=== PATIENT | female | born 1950 | race Caucasian/White ===

== ENCOUNTER 2019-11-04 18:26 | Emergency (ER) | payer MEDICARE, SELFPAY ==
[2019-11-04] VITALS (14 sets, daily range): BP systolic 93–118; BP diastolic 46–57; PULSE 54–70; RESP 16–37; TEMP 36.2; O2SAT 95–100
--- NOTE | 2019-11-04 18:30 | ED_ITS ---
HPI - Neuro Symptoms/Deficit General Chief Complaint: Weakness Stated Complaint: thinks TIA Time Seen by Provider: 11/04/19 18:30 Source: patient Mode of arrival: Wheelchair Limitations: no limitations History of Present Illness HPI Narrative: 69-year-old female nonsmoker with history of diabetes and hypertension presents with a chief complaint of generalized weakness gradually worsening over the course of the day. She denies any fever or chills. She has had no runny nose, sore throat or cough. She feels fatigued and unsteady. She denies any blurred vision or trouble with speech. She denies any focal neur ologic findings such as numbness, tingling or weakness. She's had no chest pain or SOB. She's had no N/V/D. She denies urinary frequency and urgency. She has chronic pain and her medical problems are managed at a pain clinic in [place]. She is visiting locally and complains of some vague low back pain in the absence of injury. She denies loss of control of bowel or bladder. She denies foot drop. Onset (ago): hour(s) History of same: No Severity: moderate Quality: weak Relieving factors: none Exacerbating factors: none Context: gradual onset On Anticoagulants: No Associated symptoms: denies other symptoms Treatments Prior to Arrival: none Related Data Allergies Allergy/AdvReac Type Severity Reaction Status Date / Time NSAIDS (Non-Steroidal AdvReac Unknown Verified 11/04/19 18:32 Anti-Inflamma Review of Systems Review of Systems ROS Unobtainable: All systems reviewed & are unremarkable except as noted in HPI and below Constitutional Constitutional: Denies chills, Denies fatigue, Denies fever(s), Denies frequent falls, Denies lethargy and Reports weakness Eyes Eyes: Denies change in vision, Denies eye discharge, Denies irritation and Denies loss of vision ENT Ears, Nose, Mouth, and Throat: Denies change in voice, Denies dizziness, Denies neck pain, Denies sore throat and Denies throat swelling Cardiovascular Cardiovascular: Denies chest pain, Denies irregular heart rhythm, Denies lightheadedness, Denies palpitations, Denies dyspnea, Denies dyspnea on exertion and Denies orthopnea Respiratory Respiratory: Denies cough, Denies dyspnea, Denies dyspnea on exertion and Denies wheezing Gastrointestinal Gastrointestinal: Denies abdominal pain, Denies change in bowel habits, Denies diarrhea, Denies nausea and Denies vomiting Musculoskeletal Musculoskeletal: Reports back pain, Denies neck pain and Denies numbness Integumentary/Breasts Skin/Breast: Denies pruritus, Denies erythema, Denies rash and Denies wounds Neurologic Neurologic: Denies behavioral changes, Denies confusion, Denies dizziness, Denies frequent falls, Denies loss of vision, Denies numbness and Reports weakness Psychiatric Psychiatric: Denies anxiety, Denies behavioral changes, Denies confusion, Denies depression, Denies homicidal ideation and Denies suicidal ideation Endocrine Endocrine: Denies fatigue, Denies flushing and Denies palpitations Hematologic/Lymphatic Hematologic/Lymphatic: Denies easy bruising Allergic/Immunologic Allergic/Immunologic: Denies urticaria, Denies throat swelling and Denies wheezing Patient History Social History Smoking Status: Never smoker Smoking Status: Never smoker alcohol intake frequency: 0-2 drinks per day Substance Use Type: does not use Exam Narrative Exam Narrative: GENERAL: [69] year old patient appears stated age. Well-nourish ed, well-developed patient, in mild distress. HEAD: Atraumatic. Normocephalic. EYES: Pupils equal round and reactive. Extraocular motions intact. No scleral icterus. No injection or drainage. ENT: Nose without bleeding, purulent drainage. Throat without erythema, tonsillar hypertrophy or exudate. Airway patent. NECK: Trachea midline. Non tender CARDIOVASCULAR: Regular rate and rhythm without murmurs, gallops, or rubs. RESPIRATORY: Clear to auscultation. Breath sounds equal bilaterally. No wheezes, rales, or rhonchi. GASTROINTESTINAL: Abdomen soft, non-tender, nondistended. EXTREMITIES: No edema or joint tenderness. BACK: fourdrinier machine tender but free of any obvious external abnormalities. Patient exam notes decreased range of motion and muscle spasm, but no CVA tenderness, or vertebral point tenderness. There are no symptoms of cauda equina such as saddle anesthesia, and decreased reflexes, decreased sensation or strength. NEURO: AOx3. SKIN: No rash or erythema of visible areas Initial Vital Signs Initial Vital Signs: Vital Signs Temperature 97.1 F L 11/04/19 18:29 Pulse Rate 57 L 11/04/19 18:29 Respiratory Rate 18 11/04/19 18:29 Blood Pressure 98/57 L 11/04/19 18:29 Pulse Oximetry 97 11/04/19 18:29 Scores NIH Stroke Scale Level of Conciousness: Alert, keenly responsive Ask month/age: Answers both questions correctly. Open/close eyes, close hand: Performs both tasks correctly Best gaze horizontal: Normal Visual faust: No visual loss Facial palsy: Normal symetrical movement Left arm drift: No drift for full 10 sec Right arm drift: No drift for full 10 sec Left leg drift: No drift for full 10 sec Right leg drift: No drift for full 10 sec Limb ataxia: Absent Sensory on face/arms/legs: Normal, no sensory loss Best language: No aphasia, normal Dysarthria: Normal Extinction or inattention: No abnormality Total NIH Stroke scale score: 0 Course Course Course Narrative: as the course wears on she is complaining more and more of dyspnea. She has no abnormal vitals and is able to ambulate to and from the bathroom without and obvious difficulty. She has spo2 in the mid to upper 90s. She is evaluated for stroke, but thought unlikely given her symptoms and exam. CA considered but thought unlikely given symptoms, lack of exertional change, EKG change and normal troponin. PE considered given recent travel, but no findings on CTA. Electrolyte abnormalities ruled out by lab work. Pneumonia, CHF, and others also considered. Return precautions given, questions answered to her apparent satisfaction. Orders Ordered: ED Orders 11/04/19 18:41 CT head/brain wo con Stat XR chest 1V Stat EKG-12 Lead Stat 11/04/19 18:53 C-Reactive Protein Quant Stat Complete Blood Count AUTO DIFF Stat Comprehensive Metabolic Panel Stat NT-proBNP (BNP-Adult 18+) Stat Procalcitonin Stat Troponin & CK Cardiac Panel Stat 11/04/19 18:59 D Dimer Stat 11/04/19 20:05 CT angio chest PE protocol Stat 11/04/19 20:37 XR lumbar spine 2-3V Stat Discontinued Medications Acetaminophen (Tylenol) 650 mg PO NOW ONE Stop: 11/04/19 23:08 Last Admin: 11/04/19 23:12 Dose: 650 mg Documented by: BILLIE Sodium Chloride (Normal Saline 0.9%) 1,000 mls @ 1,000 mls/hr IV BOLUS ONE Stop: 11/04/19 19:38 Last Infusion: 11/04/19 21:00 Dose: 0 mls/hr Documented by: Admin: 11/04/19 19:23 Dose: 1,000 mls/hr Documented by: KAVYA Sodium Chloride (Normal Saline 0.9%) 1,000 mls @ 1,000 mls/hr IV BOLUS ONE Stop: 11/04/19 20:51 Last Admin: 11/04/19 23:17 Dose: Not Given Documented by: BLILIE Ketorolac Tromethamine (Toradol) 15 mg IV NOW ONE Stop: 11/04/19 21:55 Last Admin: 11/04/19 22:35 Dose: 15 mg Documented by: BILLIE Lidocaine (Lidoderm) 1 each TOP NOW ONE Stop: 11/04/19 20:34 Last Admin: 11/04/19 20:41 Dose: 1 each Documented by: BILLIE Pantoprazole Sodium (Protonix) 40 mg IV NOW ONE Stop: 11/04/19 21:55 Last Admin: 11/04/19 22:35 Dose: 40 mg Documented by: BILLIE Vital Signs Vital signs: Vital Signs - 8 hr 11/04/19 18:29 11/04/19 19:30 11/04/19 19:46 Temperature 97.1 F L Pulse Rate 57 L 54 L 55 L Respiratory Rate 18 18 18 Blood Pressure 98/57 L 93/51 L Pulse Oximetry 97 99 96 11/04/19 20:00 11/04/19 20:30 11/04/19 21:07 Temperature Pulse Rate 55 L 70 62 Respiratory Rate 19 37 H 23 Blood Pressure 111/56 L Pulse Oximetry 100 99 99 11/04/19 21:08 11/04/19 21:30 11/04/19 21:31 Temperature Pulse Rate 60 58 L 58 L Respiratory Rate 23 19 17 Blood Pressure 111/56 L 118/51 L Pulse Oximetry 99 95 99 11/04/19 22:00 11/04/19 22:03 11/04/19 22:04 Temperature Pulse Rate 57 L 60 58 L Respiratory Rate 18 16 21 Blood Pressure 105/55 L 105/55 L Pulse Oximetry 98 11/04/19 22:30 11/04/19 23:00 Temperature Pulse Rate 65 64 Respiratory Rate 23 20 Blood Pressure 112/56 L 94/46 L Pulse Oximetry 100 MDM - Neuro Symptoms/Deficit Lab Data Result diagrams: 11/04/19 18:53 11/04/19 18:53 Labs: Lab Results 11/04/19 11/04/19 11/04/19 Range/Units 18:53 18:53 18:53 WBC 9.2 (4.5-11.0) X10^3/uL RBC 4.27 (4.0-5.2) X10^6/uL Hgb 12.3 (12.0-16.0) g/dL Hct 36.4 (36-46) % MCV 85.4 (80-100) fL MCH 28.9 (26-34) PG MCHC 33.8 (30-36) % RDW 13.5 (11.6-14.8) % Plt Count 313 (150-400) X10^3/uL Neut % (Auto) 60.3 (50-75) % Lymph % (Auto) 29.7 (25-40) % [place] % (Auto) 8.8 (3-14) % Eos % (Auto) 0.6 L (2-4) % Baso % (Auto) 0.6 (0-2) % Neut # (Auto) 5500 (7169-9903) /uL Lymph # (Auto) 2700 (3345-0032) /uL [place] # (Auto) 800 (0-900) /uL Eos # (Auto) 100 (0-450) /uL Baso # (Auto) 100 (0-100) /uL D-Dimer (<230) ng/mL Sodium 132 L (137-145) mmol/L Potassium 4.2 (3.4-5.1) mmol/L Chloride 96 L (98-107) mmol/L Carbon Dioxide 30 (22-32) mmol/L BUN 13 (7-17) mg/dL Creatinine 0.57 (0.52-1.04) mg/dL Estimated GFR > 60.0 (>60) mL/min BUN/Creatinine Ratio 22.8 H (6-22) Glucose 201 H (80-110) mg/dL Calcium 10.2 (8.4-10.2) mg/dL Total Bilirubin 0.5 (0.2-1.3) mg/dL AST 24 (14-36) IU/L ALT 19 (<35) IU/L Alkaline Phosphatase 103 (38-126) U/L Total Creatine Kinase (30-135) U/L CK-MB (CK-2) (<2.37) ng/mL CK-MB (CK-2) Rel Index (1.5-5.0) % Troponin I (0.01-0.034) ng/mL C-Reactive Protein 2.7 H (<1.0) mg/dL NT-Pro-B Natriuret Pep 119 (<125) pg/mL Total Protein 6.8 (6.3-8.2) g/dL Albumin 4.0 (3.5-5.0) g/dL Globulin 2.8 (1.7-4.1) g/dL Albumin/Globulin Ratio 1.4 (1.0-2.8) Procalcitonin < 0.05 (<0.5) ng/mL 11/04/19 11/04/19 Range/Units 18:53 18:59 WBC (4.5-11.0) X10^3/uL RBC (4.0-5.2) X10^6/uL Hgb (12.0-16.0) g/dL Hct (36-46) % MCV (80-100) fL MCH (26-34) PG MCHC (30-36) % RDW (11.6-14.8) % Plt Count (150-400) X10^3/uL Neut % (Auto) (50-75) % Lymph % (Auto) (25-40) % [place] % (Auto) (3-14) % Eos % (Auto) (2-4) % Baso % (Auto) (0-2) % Neut # (Auto) (3788-4164) /uL Lymph # (Auto) (7685-2224) /uL [place] # (Auto) (0-900) /uL Eos # (Auto) (0-450) /uL Baso # (Auto) (0-100) /uL D-Dimer 203 (<230) ng/mL Sodium (137-145) mmol/L Potassium (3.4-5.1) mmol/L Chloride (98-107) mmol/L Carbon Dioxide (22-32) mmol/L BUN (7-17) mg/dL Creatinine (0.52-1.04) mg/dL Estimated GFR (>60) mL/min BUN/Creatinine Ratio (6-22) Glucose (80-110) mg/dL Calcium (8.4-10.2) mg/dL Total Bilirubin (0.2-1.3) mg/dL AST (14-36) IU/L ALT (<35) IU/L Alkaline Phosphatase (38-126) U/L Total Creatine Kinase 109 (30-135) U/L CK-MB (CK-2) 0.56 (<2.37) ng/mL CK-MB (CK-2) Rel Index 0.5 L (1.5-5.0) % Troponin I < 0.012 (0.01-0.034) ng/mL C-Reactive Protein (<1.0) mg/dL NT-Pro-B Natriuret Pep (<125) pg/mL Total Protein (6.3-8.2) g/dL Albumin (3.5-5.0) g/dL Globulin (1.7-4.1) g/dL Albumin/Globulin Ratio (1.0-2.8) Procalcitonin (<0.5) ng/mL Imaging Data CT scan - head: Radiologist's Impression: Michelle Cerda 69 F 1950 [place] [address] CT Scan Report Signed Patient: Michelle Cerda LMR#: [id number] : [id number]:[id number] Age/Sex: 69 / FDate of Service: 11/04/19 Loc: ED Accession Number: [id number] Procedure: CT head/brain wo con Ordering Provider: Sven Ying D.O. PROCEDURE: CT HEAD/BRAIN WO CON INDICATIONS: vision change, weakness TECHNIQUE: Noncontrast 4.5 mm thick angled axial sections acquired from the foramen magnum to the vertex, with coronal and sagittal reformats. For radiation dose reduction, the following was used: automated exposure control, adjustment of mA and/or kV according to patient size. COMPARISON: None. FINDINGS: Image quality: Excellent. CSF spaces: Basal cisterns are patent. No extra-axial fluid collections. The ventricles are symmetric in size and shape. Brain: No intracranial bleeds or masses. There is cerebral volume loss for age, with resultant ventricular and sulcal prominence. There are periventricular and deep white matter chronic small vessel ischemic changes. There is intracranial internal carotid artery atherosclerosis. Skull and face: Calvarium and visualized facial bones appear intact, without suspicious lesions. Sinuses: Visualized sinuses and mastoids are clear. IMPRESSION: No acute intracranial process. Dictated by: Mike Payton M.D. on 11/04/2019 at 19:12 Approved by: Mike Payton M.D. on 11/04/2019 at 19:13 CT scan - chest: Radiologist's Impression: [address] [address] XRay Report Signed Patient: Michelle Cerda LMR#: [id number] : [id number]:[id number] Age/Sex: 69 / FDate of Service: 11/04/19 Loc: ED Accession Number: [id number] Procedure: XR chest 1V Ordering Provider: Sven Ying D.O. PROCEDURE: XR CHEST 1V INDICATIONS: weakness TECHNIQUE: One view of the chest was acquired. COMPARISON: None. FINDINGS: Surgical changes and devices: None. Lungs and pleura: Lungs are clear. No pleural effusions or pneumothorax. Mediastinum: Mediastinal contours appear normal. Heart size is normal. Bones and chest wall: No suspicious bony lesions. Overlying soft tissues appear unremarkable. IMPRESSION: No acute disease. Dictated by: Mike Payton M.D. on 11/04/2019 at 19:25 Approved by: Mike Payton M.D. on 11/04/2019 at 19:25 Discharge Plan Departure Patient Disposition: Home Clinical Impression: Acute dyspnea Discharge Date/Time: 11/04/19 23:38 Instructions: DI for Shortness of Breath Activity Restrictions/Additional Instructions: *You have been diagnosed with [dyspnea and weakness, labs and imaging were very reassuring. No evidence of pulmonary embolism, heart attack, pneumonia, anemia, electrolyte problem or other. ] *What to do: *Take medications as directed *Follow up with your primary care provider in 2-3 days, call for an aaron ointment. Let them know you were seen in the Emergency Department and that we ask that you be seen in follow up *Return to ER if you should have any new, worsening or concerning symptoms, such as [ ] Referrals: [facility] [Outside]
--- NOTE | 2019-11-04 18:41 | DI.CT.S_ITS ---
PROCEDURE: CT HEAD/BRAIN WO CON INDICATIONS: vision change, weakness TECHNIQUE: Noncontrast 4.5 mm thick angled axial sections acquired from the foramen magnum to the vertex, with coronal and sagittal reformats. For radiation dose reduction, the following was used: automated exposure control, adjustment of mA and/or kV according to patient size. COMPARISON: None. FINDINGS: Image quality: Excellent. CSF spaces: Basal cisterns are patent. No extra-axial fluid collections. The ventricles are symmetric in size and shape. Brain: No intracranial bleeds or masses. There is cerebral volume loss for age, with resultant ventricular and sulcal prominence. There are periventricular and deep white matter chronic small vessel ischemic changes. There is intracranial internal carotid artery atherosclerosis. Skull and face: Calvarium and visualized facial bones appear intact, without suspicious lesions. Sinuses: Visualized sinuses and mastoids are clear. IMPRESSION: No acute intracranial process. Dictated by: Mike Payton M.D. on 11/04/2019 at 19:12 Approved by: Mike Payton M.D. on 11/04/2019 at 19:13
--- NOTE | 2019-11-04 18:41 | DI.RAD.S_ITS ---
PROCEDURE: XR CHEST 1V INDICATIONS: weakness TECHNIQUE: One view of the chest was acquired. COMPARISON: None. FINDINGS: Surgical changes and devices: None. Lungs and pleura: Lungs are clear. No pleural effusions or pneumothorax. Mediastinum: Mediastinal contours appear normal. Heart size is normal. Bones and chest wall: No suspicious bony lesions. Overlying soft tissues appear unremarkable. IMPRESSION: No acute disease. Dictated by: Mike Payton M.D. on 11/04/2019 at 19:25 Approved by: Mike Payton M.D. on 11/04/2019 at 19:25
[2019-11-04 19:00] LABS: Add Manual Diff / Slide Review NO; Basophils Absolute Auto 100 /uL (0-100); Basophils Percent Auto 0.6 % (0-2); Eosinophils Absolute Auto 100 /uL (0-450); Eosinophils Percent Auto 0.6 % (2-4); Hematocrit 36.4 % (36-46); Hemoglobin 12.3 g/dL (12.0-16.0); Lymphocytes Absolute Auto 2700 /uL (1100-4500); Lymphocytes Percent Auto 29.7 % (25-40); Mean Corpuscular HGB Conc 33.8 % (30-36); Mean Corpuscular Hemoglobin 28.9 PG (26-34); Mean Corpuscular Volume 85.4 fL (80-100); Monocytes Absolute Auto 800 /uL (0-900); Monocytes Percent Auto 8.8 % (3-14); Neutrophils Absolute Auto 5500 /uL (1500-7000); Neutrophils Percent Auto 60.3 % (50-75); Platelet Count 313 X10^3/uL (150-400); Red Blood Cell Count 4.27 X10^6/uL (4.0-5.2); Red Cell Distribution Width 13.5 % (11.6-14.8); White Blood Cell Count 9.2 X10^3/uL (4.5-11.0)
[2019-11-04 19:09] LABS: Creatine Kinase 109 U/L (30-135)
[2019-11-04 19:13] LABS: Alanine Aminotransferase 19 IU/L (<35); Albumin Globulin Ratio 1.4 (1.0-2.8); Alkaline Phosphatase 103 U/L (38-126); Aspartate Aminotransferase 24 IU/L (14-36); BUN Creatinine Ratio 22.8 (6-22); Bilirubin Total 0.5 mg/dL (0.2-1.3); Blood Urea Nitrogen 13 mg/dL (7-17); C-Reactive Protein Quant 2.7 mg/dL (<1.0); Calcium 10.2 mg/dL (8.4-10.2); Carbon Dioxide 30 mmol/L (22-32); Chloride 96 mmol/L (98-107); Estimated Glomerular Filt Rate > 60.0 mL/min (>60); Globulin 2.8 g/dL (1.7-4.1); Glucose 201 mg/dL (80-110); HEMOLYSIS < 15 (0-50); Potassium 4.2 mmol/L (3.4-5.1); Sodium 132 mmol/L (137-145); Total Protein 6.8 g/dL (6.3-8.2)
[2019-11-04 19:20] LABS: NT-proBNP (BNP-Adult 18+) 119 pg/mL (<125)
[2019-11-04 19:22] LABS: Troponin I < 0.012 ng/mL (0.01-0.034)
[2019-11-04] MEDS: SODIUM CHLORIDE 0.9% 1,000 ML 1000 ML IV (19:23)
--- NOTE | 2019-11-04 19:24 | PC.NURSE ---
pt has +2-3 lower extremity pitting edema left greater than right. pt states that it has been that way for quite some time
[2019-11-04 19:25] LABS: CKMB % Relative Index 0.5 % (1.5-5.0); Creatine Kinase MB 0.56 ng/mL (<2.37); Procalcitonin < 0.05 ng/mL (<0.5)
--- NOTE | 2019-11-04 20:05 | DI.CT.S_ITS ---
PROCEDURE: CT ANGIO CHEST PE PROTOCOL INDICATIONS: SOB, travel TECHNIQUE: After the administration of intravenous contrast, 2 mm thick sections acquired from the pulmonary apices to the posterior costophrenic angles. 3-dimensional maximum intensity projection (MIP) coronal and sagittal reformats were then acquired through the thorax. For radiation dose reduction, the following was used: automated exposure control, adjustment of mA and/or kV according to patient size. COMPARISON: None. FINDINGS: Image quality: Excellent. Pulmonary arteries: Pulmonary arteries are normal in size, and demonstrate no intraluminal filling defects to suggest central pulmonary embolism. Lungs and pleura: Lungs are clear. No pleural effusions or pneumothorax. Central and peripheral airways are patent. 3 mm calcified granuloma seen in the lingula. Mediastinum: Heart size is normal, without pericardial effusion. No mediastinal or hilar adenopathy. Thoracic aorta is normal in caliber and enhancement. Small hiatal hernia. No suspicious bony lesions. Ribs and thoracic spine appear intact throughout. Thyroid gland negative . No axillary or supraclavicular adenopathy. Abdomen: Visualized upper abdominal solid organs appear normal in the early arterial phase of enhancement. IMPRESSION: No evidence of pulmonary embolism. No aortic dissection identified. No acute consolidation. Dictated by: Mike Payton M.D. on 11/04/2019 at 21:02 Approved by: Mike Payton M.D. on 11/04/2019 at 21:06
[2019-11-04 20:21] LABS: D Dimer 203 ng/mL (<230)
--- NOTE | 2019-11-04 20:37 | DI.RAD.S_ITS ---
PROCEDURE: XR LUMBAR SPINE 2-3V INDICATIONS: pain TECHNIQUE: 2 views of the lumbar spine were acquired. COMPARISON: None. FINDINGS: Bones: No fracture or focal osseous destruction. Diffuse spondylosis and facet arthropathy grade 1 anterolisthesis of L4 on L5. Severe L5-S1 disc space narrowing. Mild levocurvature. Soft tissues: Overlying bowel gas pattern is normal. No suspicious soft tissue calcifications. IMPRESSION: Multilevel spondylosis most pronounced at L5-S1. Grade 1 anterolisthesis of L4 on L5. No fracture Dictated by: Mike Payton M.D. on 11/04/2019 at 21:21 Approved by: Mike Payton M.D. on 11/04/2019 at 21:22
[2019-11-04] MEDS: LIDOCAINE PATCH 1 EACH ADH..PATCH TOP (20:41)
[2019-11-04] MEDS: KETOROLAC 60 MG/2 ML VIAL 15 MG IV (22:35)
[2019-11-04] MEDS: PANTOPRAZOLE 40 MG VIAL IV (22:35)
[2019-11-04] MEDS: ACETAMINOPHEN 325 MG TABLET 650 MG PO (23:12)
--- NOTE | 2019-11-04 23:15 | PC.NURSE ---
Pt states she's been here for 4 hours and wants to go home. Now ambulated to bathroom with daughter.
--- NOTE | 2019-11-04 23:15 | PC.NURSE ---
Pt declined orthostatic vital signs
== END 2019-11-04 23:38 | disposition home or self-care (01) ==
PROVIDERS: Emergency Provider Emergency Medicine
DX: R06.00 Dyspnea, unspecified (principal); R53.1 Weakness; M54.5 Low back pain
CPT/HCPCS: 36415; 70450; 71045; 71275; 72100; 80053; 82550; 82553; 83880; 84145; 84484; 85025; 85379; 86140; 93005; 96361; 96374; 96375; 99284; 99285; C9113; J1885; Q9967

== ENCOUNTER 2022-08-02 20:54 | Emergency (ER) | payer MEDICARE, SELFPAY ==
[2022-08-02 20:59] VITALS: PULSE 76; O2SAT 95
[2022-08-02 21:00] VITALS: BP 176/69; PULSE 75; RESP 16; O2SAT 97
[2022-08-02 21:02] VITALS: BP 176/69; PULSE 74; RESP 16; TEMP 36.6; O2SAT 97; BMI 46.5
--- NOTE | 2022-08-02 21:18 | ED.GENADULT ---
HPI - General Adult General Chief complaint: Toxicology Problem Stated complaint: OD Time Seen by Provider: 08/02/22 21:16 Source: patient and EMS Mode of arrival: EMS History of Present Illness HPI narrative: 71-year-old woman with a history of type 2 diabetes, hyperlipidemia, asthma, fibromyalgia, migraines, morbid are obesity with limited mobility post left hip replacement currently dealing with the of a 22-year-old granddaughter approximately 2 weeks ago presents after accidental narcotic overdose. She has 20 mg oxycodone available at home for acute pain relief. She took 1 of her pills today and shortly thereafter took a 2nd because she did not remember she took the 1st. Her daughter administered 2 doses of Narcan and she was transported to the emergency department. She complains of increasing pain but is awake and alert. Daughter is concerned that the daughter, son-in-law and mother are all living in a small mobile home and the daughter is requesting that mom be admitted overnight because it is difficult to have her at home. Patient reports no change to her baseline chronic pain and mobility issues. Related Data Allergies Allergy/AdvReac Type Severity Reaction Status Date / Time clindamycin Allergy Unknown Verified 08/02/22 21:08 metoprolol AdvReac Unknown Verified 08/02/22 21:08 NSAIDS (Non-Steroidal AdvReac Unknown Verified 08/02/22 21:08 Anti-Inflamma Review of Systems Review of Systems Narrative: Remainder of complete review of systems is otherwise unremarkable except for that included in the HPI. Patient History Medical History (Updated 08/02/22 @ 23:22 by Annette Lu MD) Asthma Diabetes Hyperlipidemia Hypertension Osteoarthritis Social History Smoking Status: Never smoker Smoking Status: Never smoker alcohol intake frequency: 0-2 drinks per day Substance Use Type: does not use Exam Initial Vital Signs Initial Vital Signs: Vital Signs Pulse Rate 76 08/02/22 20:59 Pulse Oximetry 95 08/02/22 20:59 General: Alert appropriate in no acute distress Respiratory: Able to speak in full sentences, no obvious respiratory distress, oxygen saturations on room air in the 95-96% range Skin: No obvious rashes, warm and dry Neurologic: Grossly intact no obvious asymmetries or abnormalities Psych: appropriate insight and affect, cooperative Course Orders Ordered: ED Orders 08/02/22 21:07 Consult to NOVELTY TWISTER OPERATOR - Grants Specialist Stat Discontinued Medications Naloxone HCl (Naloxone 4 Mg Nasal Clutier) 4 mg MISC SEEINSTR ONE Stop: 08/02/22 23:13 Last Admin: 08/02/22 23:22 Dose: 4 mg Documented By: ALLI Vital Signs Vital signs: Vital Signs - 8 hr 08/02/22 23:28 Pulse Rate 71 Respiratory Rate 22 Blood Pressure 173/80 H Pulse Oximetry 93 Medical Decision Making [facility] Narrative Medical decision making narrative: CC: Accidental narcotic overdose. Is an acute issue with uncertain prognosis Complicating co-morbidities: Chronic pain, chronic opioid use, acute grief reaction after the loss of a granddaughter, hypertension, hyperlipidemia, mobility issues, Data collected from: patient, Social determinants of health that may influence the patients condition: Psychosocial issues. She lives with her daughter and son-in-law in a mobile home with very little space. Apparently this is becoming more and more of an issue. Medical records reviewed: ER visit from [facility] on July 29 is reviewed Differential considered: Accidental overdose, intentional overdose, severe respiratory depression, Exam documented above, pertinent findings include: Breathing is regular and even, she is saturating now at 97% on room air had initially complained of significant pain that is lessening as the Narcan is wearing off and the narcotic is having a bit more effect. Lab Test are not indicated with today's visit Discussion: 71-year-old woman with a history of chronic pain secondary to osteoarthritis with mobility issues and acute grief reaction secondary to loss of her granddaughter currently staying with her daughter in a very limited space with increasing psychosocial issues due to this living arrangement presents after accidentally taking a 2nd 20 mg oxycodone. Her daughter did administered 2 doses of Narcan. Patient had fairly significant immediate withdrawal symptoms that are now abating is the Narcan is wearing off. There were no other adverse effects no indication of pulmonary edema or returning respiratory distress or depression. Her daughter has requested that mom's spend the night and we have explained to the daughter that that is not going to be able to be facilitated. I will ask our mental health social worker to give them a call tomorrow to see if there is any help that she might be able to offer with her difficult living situation. I also refilled the patient's Narcan prescription. All of this is reviewed questions are answered and patient is safe for discharge home Discharge Plan Departure Patient Disposition: Home Clinical Impression: Accidental poisoning by opiates and related narcotics Qualifiers: Encounter type: initial encounter Qualified Code(s): T40.601A - Poisoning by unspecified narcotics, accidental (unintentional), initial encounter Instructions: Naloxone for Opiate Overdose - WADOH Activity Restrictions/Additional Instructions: Thank you for coming in today I am glad that you ended up using the Narcan that I gave you the other day. I am sorry that it needed to be done. I appreciate the use the pain medication only as needed but you do need to come up with some type of method to make sure that you do not accidentally take an extra dose. Perhaps a small note book that is physically attached to the prescription bottle so you can note the time and date that you took your dose. I have given you another prescription for Narcan I wish I had more suggestions for helping with some of your social dilemmas. I am going to ask my mental health social worker to contact you to see if there is any additional assistance she might be able to have. She does work tomorrow so expect to call sometime tomorrow afternoon. I wish you well Stand Alone Forms: Patient Portal/API
[2022-08-02] MEDS: NALOXONE 4 MG NASAL SPRAY MISC (23:22)
[2022-08-02 23:28] VITALS: BP 173/80; PULSE 71; RESP 22; O2SAT 93
--- NOTE | 2022-08-03 13:30 | CM.SWNOTE ---
ED QUANTITATIVE RESEARCHER f/u Note QUANTITATIVE RESEARCHER receives QUANTITATIVE RESEARCHER consult for ED f/u call. QUANTITATIVE RESEARCHER reviews EMR, Vadim and reviews patient with dry charge process attendant. It is reported that patient's prescriber and PCP is Aftab Leonard PA-C (Ph. # [phone]) and patient is prescribed various pain medications. QUANTITATIVE RESEARCHER calls patient and leaves VM regarding patient's recent ED encounter. Plan: QUANTITATIVE RESEARCHER awaiting return call from patient, QUANTITATIVE RESEARCHER to attempt to f/u tomorrow as well. Janis Velasquez, SOCIAL GROUP WORKER
== END 2022-08-03 00:25 | disposition home or self-care (01) ==
PROVIDERS: Emergency Provider Emergency Medicine
DX: T40.2X1A Poisoning by other opioids, accidental (unintentional), initial encounter (principal)
CPT/HCPCS: 99281; 99282; A9270

== ENCOUNTER 2022-09-06 15:43 | Emergency (ER) | payer MEDICARE, SELFPAY ==
[2022-09-06 15:50] VITALS: BP 174/72; PULSE 81; RESP 19; TEMP 36.2; O2SAT 99
--- NOTE | 2022-09-06 17:06 | DI.US.S_ITS ---
PROCEDURE: US PERIPH VENOUS LOW EXTREM LT INDICATIONS: PAIN TECHNIQUE: Real-time imaging, as well as color and pulse Doppler interrogation, were performed of the lower extremity deep veins from the inguinal ligament to the popliteal fossa. COMPARISON: None. FINDINGS: The common femoral, femoral and popliteal veins are normally compressible, and free of intraluminal thrombus. Color and pulse Doppler demonstrate normal phasic intraluminal flow. There is normal augmentation response to distal compression maneuver. IMPRESSION: No evidence of left lower extremity deep venous thrombosis. Dictated by: Gallo Yun D.O. on 09/06/2022 at 17:13 Approved by: Gallo Yun D.O. on 09/06/2022 at 17:14
--- NOTE | 2022-09-06 17:19 | PC.NURSE ---
Patient reports femur [place] in [place] Did a short rehab and has had difficulty walking and balance issues. Reports has not sought care for this but does report she's had a DVT study done but not recently. Comes in today because of sudden onset pain last night and that pain has not been a feature of her disability. Reports she goes from bed to bedside commode in a mobile home and can only walk very short distances. Left foot is slightly a different color than right foot but is warm to the touch. Doppler pedal pulse due to body habitus made it difficult to palpate pulse.
--- NOTE | 2022-09-06 19:11 | ED_ITS ---
HPI - Extremity Problem General Chief complaint: Extremity Problem,Nontraumatic Stated complaint: Problem with leg Time Seen by Provider: 09/06/22 17:26 Source: patient Mode of arrival: Family Vehicle History of Present Illness HPI Narrative: 71F nonsmoker with history of prior femur fracture about 1 year ago and ongoing pain and swelling presents today with caregiver in the chief complaint of swelling of her left leg which has been present for 1 year. Additionally there is some discoloration on the dorsum of her foot which has also been present for approximately 1 year. She states the primary reason for her visit is that she developed an aching and throbbing pain primarily in her left calf. Even on a good day she is very minimally ambulatory. She denies fever or chills. She denies nausea or vomiting. She has no chest pain or shortness of breath. She is primarily concerned about the possibility of a DVT in her left lower extremity. She denies any trauma or recent injury Related Data Allergies Allergy/AdvReac Type Severity Reaction Status Date / Time clindamycin Allergy Unknown Verified 09/06/22 15:56 metoprolol AdvReac Unknown Verified 09/06/22 15:56 NSAIDS (Non-Steroidal AdvReac Unknown Verified 09/06/22 15:56 Anti-Inflamma Review of Systems Review of Systems Narrative: GENERAL: Denies chills, fatigue, malaise, fever, sweats. HEENT: Denies sinus pain, ear pain, sore throat, difficulty swallowing, dizziness. RESPIRATORY: Denies dyspnea, cough, wheezing, hemoptysis, sputum. CARDIOVASCULAR: Denies chest pain, palpitations, orthopnea, edema, GASTROINTESTINAL: Denies nausea, vomiting, abdominal pain, diarrhea, constipation, melena. : Denies dysuria, frequency, incontinence, hematuria, urinary retention. MUSCULOSKELETAL: See HPI SKIN: Denies rash, skin lesions, or other NEUROLOGIC: Denies weakness, headache, numbness, change in speech, confusion, seizures, incoordination. PSYCHIATRIC: No concerning psychosocial issues. 12 point review of systems is negative except for those stated above Patient History Medical History Asthma Diabetes Hyperlipidemia Hypertension Osteoarthritis Social History Smoking Status: Never smoker Smoking Status: Never smoker alcohol intake frequency: 0-2 drinks per day Substance Use Type: does not use Exam Narrative Exam Narrative: GEN: AOx3 and in mild distress EYES: Pupils are equal, round, and reactive to light and accommodation. Extraoccular muscles are intact bilaterally. There is no subconjunctival hemorrhage or exudate. CHEST: Lungs are clear to auscultation bilaterally and free of wheezes, rales, or rhonchi. Heart rate is regular rhythm, there are no murmurs, clicks, rubs, or gallops. There is no chest wall tenderness. ABD: Abdomen is soft and nontender. There is no guarding or rebound. Bowel sounds are normal in all 4 quadrants. There is no mass or organomegaly. EXT: Left lower extremity [id number] with minimal swelling when compared to the right, there is tenderness to palpation in the posterior calf but no redness, warmth, no lymphangitis, no induration or fluctuance. Dorsum of left foot is edematous, chronic per patient and slightly erythematous, also chronic per patient, sensation intact SKIN: Warm, pink, and dry. No erythema or rash Initial Vital Signs Initial Vital Signs: Vital Signs Temperature 97.2 F L 09/06/22 15:50 Pulse Rate 81 09/06/22 15:50 Respiratory Rate 19 09/06/22 15:50 Blood Pressure 174/72 H 09/06/22 15:50 Pulse Oximetry 99 09/06/22 15:50 Oxygen Delivery Method Room Air 09/06/22 15:50 Course Orders Ordered: ED Orders 09/06/22 19:37 XR knee LT 3V Stat Discontinued Medications Oxycodone/Acetaminophen (Oxycodone/Acetaminophen 5/325 Tablet) 2 tab PO NOW ONE Stop: 09/06/22 21:59 Last Admin: 09/06/22 22:04 Dose: 2 tab Documented By: BRET Vital Signs Vital signs: Vital Signs - 8 hr 09/06/22 22:07 Pulse Rate 75 Respiratory Rate 16 Blood Pressure 168/77 H Pulse Oximetry 95 Oxygen Delivery Method Room Air MDM - Extremity (Nontraumatic) MDM Narrative Medical decision making narrative: [71] year old patient presents with left lower extremity chronic swelling with new pain Multiple etiologies for patient's symptoms considered including, but not limited to: [DVT versus Mathews cyst versus arthritis versus cellulitis] Prior Charts reviewed in our EMR Primary Historian: patient Imaging reviewed: Ultrasound without evidence of DVT or Mathews cyst. X-ray without acute finding Patient's symptoms improved over duration of stay with above-stated therapies. DVT considered but thought unlikely given lack of findings on ultrasound, also Mathews cyst considered but no findings on ultrasound. Perhaps a collapsed cyst that is not visualized on imaging. Cellulitis thought extremely unlikely given chronicity of symptoms, lack of new erythema nor fever or chills. Findings and discharge diagnosis discussed with patient/family followed by verbalization of understanding Return precautions discussed with patient/family whom verbalize understanding of diagnosis and plan Discharge Plan Departure Patient Disposition: Home Clinical Impression: Left leg pain Instructions: DI for Leg Pain Activity Restrictions/Additional Instructions: *You have been diagnosed with [left leg pain. As we discussed your history and exam are reassuring. Ultrasound demonstrated no DVT or Bakers Cyst and Xray shows no acute finding. ] *What to do: *Please continue to take your regular medications as directed. [ ] New medication prescriptions sent to your pharmacy: [ ] [ ] New medication written as a paper prescription [ ] No new medications given *Please follow up with your primary care provider in 2-3 days, call for an appointment. Let them know you were seen in the Emergency Department and that we ask that you be seen in follow up. We will electronically transmit a record of today's note if your PCP is in our system *If you do not have a primary care provider please contact the [facility] Resource line at [phone]. They will ask some questions about your medical history and help get you set up with a doctor in the community. *Return to Emergency Department if you should have any new, worsening or concerning symptoms, such as [fever greater than 101 F, shaking chills, worsening pain, persistent vomiting or other bothersome symptoms] Stand Alone Forms: Patient Portal/API
--- NOTE | 2022-09-06 19:37 | DI.RAD.S_ITS ---
PROCEDURE: XR KNEE LT 3V INDICATIONS: pain and swelling TECHNIQUE: 3 views of the knee were acquired. COMPARISON: None. FINDINGS: Bones: Evaluation limited by body habitus. No definite fracture or dislocation. No suspicious bony lesions. Soft tissues: There is a suspected moderate joint effusion. No suspicious soft tissue calcifications. IMPRESSION: 1. Limited study demonstrates no definite fracture or dislocation. 2. Suspected moderate joint effusion. Dictated by: Jesus White M.D. on 09/06/2022 at 21:45 Approved by: Jesus White M.D. on 09/06/2022 at 21:48
[2022-09-06] MEDS: OXYCODONE/ACETAMINOPHEN 5/325 TABLET 2 TAB PO (22:04)
[2022-09-06 22:07] VITALS: BP 168/77; PULSE 75; RESP 16; O2SAT 95
== END 2022-09-06 22:07 | disposition home or self-care (01) ==
PROVIDERS: Emergency Provider Emergency Medicine
DX: M79.605 Pain in left leg (principal)
CPT/HCPCS: 73562; 93971; 99283

== ENCOUNTER 2022-10-17 05:50 | Observation (INO) | payer MEDICARE, SELFPAY ==
[2022-10-17] VITALS (48 sets, daily range): BP systolic 109–188; BP diastolic 48–81; PULSE 53–98; RESP 13–57; TEMP 36.2–36.9; O2SAT 87–99; BMI 44.6; BMI 44.8
--- NOTE | 2022-10-17 06:01 | DI.RAD.S_ITS ---
PROCEDURE: XR CHEST 1V INDICATIONS: Shortness of breath TECHNIQUE: One view of the chest was acquired. COMPARISON: [facility], CR, XR CHEST 1 VIEW, 10/14/2022, 2:26. [facility], CR, XR CHEST 1V, 11/04/2019, 18:47. [facility], CT, CT ANGIO CHEST PE, 09/15/2022, 13:28. FINDINGS: Surgical changes and devices: None. Lungs and pleura: Lung volumes are low. There are mild bibasilar opacities, possibly atelectasis. No dense airspace disease or pleural effusions. Mediastinum: Heart size is at the upper limit of normal. Bones and chest wall: No suspicious bony lesions. Overlying soft tissues appear unremarkable. IMPRESSION: No dense consolidation. Possible mild basal atelectasis or aspiration. Dictated by: Chilango Romano M.D. on 10/17/2022 at 7:16 Approved by: Chilango Romano M.D. on 10/17/2022 at 7:18
--- NOTE | 2022-10-17 06:13 | ED_ITS ---
HPI - General Adult <Herber Rodriguez DO - Last Filed: 10/20/22 18:02> General Chief complaint: Shortness of Breath/Dyspnea Stated complaint: Dyspnea, CHF Time Seen by Provider: 10/17/22 05:59 Source: patient Mode of arrival: Wheelchair Limitations: no limitations History of Present Illness HPI narrative: Patient is a 72-year-old female who is here for evaluation shortness of breath. She states that a couple days ago she started to have shortness of breath. She went to an outside facility where she was diagnosed with ?the beginnings of CHF ?she stated that she was started on Lasix. She does not know the dose but she knows that she takes it twice a day. She states that this morning she woke up with shortness of breath. She is also coughing. She is feeling like she can not get a deep breath. She also has some sharp left-sided chest discomfort. She has been taking all her medications as directed. No lower extremity swelling. Related Data Home Medications Medication Instructions Recorded Confirmed clonidine HCl 0.1 mg tablet 0.1 mg PO DAILY PRN blood pressure 10/17/22 10/17/22 glimepiride 4 mg tablet 4 mg PO BID 10/17/22 10/17/22 levothyroxine 100 mcg tablet 100 mcg PO QAM 10/17/22 10/17/22 lisinopril 40 mg tablet 40 mg PO DAILY 10/17/22 10/17/22 oxycodone 20 mg tablet 20 mg PO 3XD 10/17/22 10/17/22 pioglitazone 30 mg tablet 30 mg PO DAILY 10/17/22 10/17/22 tizanidine 4 mg tablet 4 mg PO Q6H 10/17/22 10/17/22 trazodone 100 mg tablet 200 mg PO QPM 10/17/22 10/17/22 Previous Rx's Medication Instructions Recorded hydrochlorothiazide 25 mg tablet 50 mg PO DAILY #30 tabs 10/19/22 pantoprazole 40 mg tablet,delayed 40 mg PO 0700,2100 #60 tabs 10/19/22 release potassium chloride 20 mEq 20 meq PO DAILYCC #30 tabs 10/19/22 tablet,extended release(part/cryst) (Klor-Con M) pravastatin 20 mg tablet 20 mg PO BEDTIME #30 tabs 10/19/22 Allergies Allergy/AdvReac Type Severity Reaction Status Date / Time clindamycin Allergy Unknown Verified 09/06/22 15:56 metoprolol AdvReac Unknown Verified 09/06/22 15:56 NSAIDS (Non-Steroidal AdvReac Unknown Verified 09/06/22 15:56 Anti-Inflamma Review of Systems <DO Leonila Vasquez Last Filed: 10/20/22 18:02> Constitutional Constitutional: Reports system reviewed and no additional complaints, except as documented Cardiovascular Cardiovascular: Reports system reviewed and no additional complaints, except as documented Respiratory Respiratory: Reports system reviewed and no additional complaints, except as documented Gastrointestinal Gastrointestinal: Reports system reviewed and no additional complaints, except as documented Musculoskeletal Musculoskeletal: Reports system reviewed and no additional complaints, except as documented Integumentary/Breasts Skin/Breast: Reports system reviewed and no additional complaints, except as documented Hematologic/Lymphatic On Anticoagulants: No Patient History <DO Leonila Vasquez Last Filed: 10/20/22 18:02> Medical History Asthma Diabetes Hyperlipidemia Hypertension Osteoarthritis Social History household members: children Smoking Status: Never smoker alcohol intake: current Smoking Status: Never smoker alcohol intake frequency: 0-2 drinks per day Substance Use Type: does not use Exam <DO Leonila Vasquez Last Filed: 10/20/22 18:02> Initial Vital Signs Initial Vital Signs: Vital Signs Temperature 97.8 F 10/17/22 05:58 Pulse Rate 59 L 10/17/22 05:58 Respiratory Rate 20 10/17/22 05:58 Blood Pressure 143/65 H 10/17/22 05:58 Pulse Oximetry 98 10/17/22 05:58 Oxygen Delivery Method Room Air 10/17/22 05:58 Const General: cooperative, comfortable and No ill appearing HENMT Head: normal to inspection and normocephalic Resp Effort & Inspection: normal respiratory effort Auscultation: clear to auscultation bilaterally Cardio Rate: regular rate Rhythm: regular rhythm GI Inspection: normal to inspection Skin General: no rashes or lesions noted Neuro General: patient alert, patient awake, patient oriented x3 and moves all extremities Extrem General: No edema <Fina Valle DO - Last Filed: 10/18/22 10:59> Initial Vital Signs Initial Vital Signs: Vital Signs Temperature 97.8 F 10/17/22 05:58 Pulse Rate 59 L 10/17/22 05:58 Respiratory Rate 20 10/17/22 05:58 Blood Pressure 143/65 H 10/17/22 05:58 Pulse Oximetry 98 10/17/22 05:58 Oxygen Delivery Method Room Air 10/17/22 05:58 Course <Herber Gideonosiris, DO - Last Filed: 10/20/22 18:02> Orders Ordered: Discontinued Medications Clonidine HCl (Clonidine 0.1 Mg Tablet) 0.1 mg PO DAILY PRN PRN Reason: blood pressure Last Admin: 10/19/22 09:41 Dose: 0.1 mg Documented By: Admin: 10/17/22 15:04 Dose: 0.1 mg Documented By: THERESA Clotrimazole (Clotrimazole 1% Vag Crm 45 Gm) 1 applic TOP BID [facility] Last Admin: 10/19/22 11:56 Dose: 1 applic Documented By: Admin: 10/19/22 11:22 Dose: Not Given Documented By: MAXIMILIAN Diphenhydramine HCl (Diphenhydramine 25 Mg Tablet) 50 mg PO NOW ONE Stop: 10/17/22 18:59 Last Admin: 10/17/22 23:27 Dose: Not Given Documented By: Diphenhydramine HCl (Diphenhydramine 25 Mg Tablet) 50 mg PO Q6HR PRN PRN Reason: Itching Last Admin: 10/19/22 09:36 Dose: 50 mg Documented By: Admin: 10/17/22 19:23 Dose: 50 mg Documented By: THERESA Enoxaparin Sodium (Enoxaparin 40 Mg/0.4 Ml Syringe) 40 mg SUBCUT NOW ONE Stop: 10/17/22 14:15 Last Admin: 10/17/22 15:16 Dose: 40 mg Documented By: THERESA Enoxaparin Sodium (Enoxaparin 40 Mg/0.4 Ml Syringe) 40 mg SUBCUT BID [facility] Last Admin: 10/18/22 09:19 Dose: Not Given Documented By: ISHMAEL Enoxaparin Sodium (Enoxaparin 40 Mg/0.4 Ml Syringe) 40 mg SUBCUT BID [facility] Last Admin: 10/19/22 09:40 Dose: Not Given Documented By: Admin: 10/18/22 21:03 Dose: Not Given Documented By: AM Fluconazole (Fluconazole 100 Mg Tablet) 150 mg PO NOW ONE Stop: 10/19/22 09:26 Last Admin: 10/19/22 10:36 Dose: 150 mg Documented By: BV Furosemide (Furosemide 20 Mg/2 Ml Vial) 20 mg IV NOW ONE Stop: 10/17/22 13:35 Last Admin: 10/17/22 15:03 Dose: 20 mg Documented By: THERESA Furosemide (Furosemide 20 Mg Tablet) 10 mg PO DAILY [facility] Glimepiride (Glimepiride 2 Mg Tablet) 4 mg PO BID [facility] Last Admin: 10/19/22 09:36 Dose: 4 mg Documented By: Admin: 10/18/22 21:01 Dose: 4 mg Documented By: Admin: 10/18/22 09:13 Dose: 4 mg Documented By: Admin: 10/17/22 20:44 Dose: 4 mg Documented By: Hydrochlorothiazide (Hydrochlorothiazide 25 Mg Tablet) 50 mg PO DAILY [facility] Hydrochlorothiazide (Hydrochlorothiazide 25 Mg Tablet) 50 mg PO DAILY [facility] Last Admin: 10/19/22 09:37 Dose: 50 mg Documented By: Admin: 10/18/22 09:14 Dose: Not Given Documented By: ISHMAEL Sodium Chloride (Normal Saline 0.9%) 250 mls @ 1,000 mls/hr IV BOLUS ONE Stop: 10/18/22 00:04 Last Admin: 10/18/22 00:02 Dose: 1,000 mls/hr Documented By: Levothyroxine Sodium (Levothyroxine 100 Mcg Tablet) 100 mcg PO 0600 [facility] Last Admin: 10/19/22 06:25 Dose: 100 mcg Documented By: Admin: 10/18/22 05:17 Dose: 100 mcg Documented By: Lisinopril (Lisinopril 20 Mg Tablet) 40 mg PO DAILY [facility] Last Admin: 10/19/22 09:36 Dose: 40 mg Documented By: Admin: 10/18/22 09:14 Dose: Not Given Documented By: ISHMAEL Lorazepam (Lorazepam 0.5 Mg Tablet) 0.5 mg PO Q4HR PRN PRN Reason: Anxiety/ chest pain Last Admin: 10/18/22 15:31 Dose: 0.5 mg Documented By: Admin: 10/17/22 22:18 Dose: 0.5 mg Documented By: Admin: 10/17/22 17:46 Dose: 0.5 mg Documented By: THERESA Lorazepam (Lorazepam 1 Mg Tablet) 0.5 mg PO BID [facility] Last Admin: 10/19/22 09:37 Dose: 0.5 mg Documented By: Admin: 10/18/22 21:00 Dose: 0.5 mg Documented By: Admin: 10/18/22 19:59 Dose: Not Given Documented By: ISHMAEL Methylprednisolone (Methylprednisolone 125 Mg/2 Ml Vial) 60 mg IV NOW ONE Stop: 10/18/22 15:51 Last Admin: 10/18/22 16:13 Dose: 60 mg Documented By: ISHMAEL Nitroglycerin (Nitroglycerin 0.4 Mg Sl Tab) 0.4 mg SL NOW ONE Stop: 10/17/22 09:12 Last Admin: 10/17/22 09:25 Dose: 0.4 mg Documented By: [place] Nitroglycerin (Nitroglycerin 0.4 Mg Sl Tab) 0.4 mg SL [id number] PRN PRN Reason: Chest Pain Nf - Pioglitazone 30 (Mg Tablet) 30 mg PO DAILY [facility] Last Admin: 10/19/22 09:38 Dose: Not Given Documented By: Admin: 10/18/22 09:15 Dose: Not Given Documented By: ISHMAEL Oxycodone HCl (Oxycodone Ir 5 Mg Tablet) 20 mg PO NOW ONE Stop: 10/17/22 09:17 Last Admin: 10/17/22 09:35 Dose: 20 mg Documented By: [place] Oxycodone HCl (Oxycodone Ir 10 Mg Tablet) 20 mg PO TID [facility] Last Admin: 10/19/22 09:36 Dose: 20 mg Documented By: Admin: 10/18/22 21:02 Dose: 20 mg Documented By: Admin: 10/18/22 14:29 Dose: 20 mg Documented By: Admin: 10/18/22 09:13 Dose: 20 mg Documented By: Admin: 10/17/22 20:44 Dose: 20 mg Documented By: Admin: 10/17/22 15:03 Dose: 20 mg Documented By: THERESA Pantoprazole Sodium (Pantoprazole Dr 40 Mg Tablet) 40 mg PO 0700,2100 [facility] Last Admin: 10/19/22 06:24 Dose: 40 mg Documented By: Admin: 10/19/22 02:37 Dose: 40 mg Documented By: Admin: 10/18/22 21:03 Dose: Not Given Documented By: AM Pantoprazole Sodium (Pantoprazole 40 Mg Vial) 80 mg IV NOW ONE Stop: 10/18/22 18:15 Last Admin: 10/18/22 21:03 Dose: Not Given Documented By: AM Potassium Chloride (Potassium Chloride 20 Meq Tab) 20 meq PO DAILYCC [facility] Last Admin: 10/19/22 09:37 Dose: 20 meq Documented By: Admin: 10/18/22 09:13 Dose: 20 meq Documented By: RLRenata Pravastatin Sodium (Pravastatin 20 Mg Tablet) 20 mg PO BEDTIME [facility] Last Admin: 10/18/22 21:02 Dose: 20 mg Documented By: Admin: 10/17/22 20:45 Dose: 20 mg Documented By: Tizanidine HCl (Tizanidine 4 Mg Tablet) 4 mg PO Q6H [facility] Last Admin: 10/19/22 13:22 Dose: 4 mg Documented By: Admin: 10/19/22 09:37 Dose: 4 mg Documented By: Admin: 10/19/22 01:06 Dose: 4 mg Documented By: Admin: 10/18/22 21:01 Dose: 4 mg Documented By: Admin: 10/18/22 14:35 Dose: 4 mg Documented By: Admin: 10/18/22 06:51 Dose: 4 mg Documented By: Admin: 10/18/22 01:56 Dose: 4 mg Documented By: Admin: 10/17/22 20:45 Dose: 4 mg Documented By: Admin: 10/17/22 15:08 Dose: Not Given Documented By: THERESA Trazodone HCl (Trazodone 50 Mg Tablet) 200 mg PO BEDTIME [facility] Last Admin: 10/18/22 21:04 Dose: Not Given Documented By: Admin: 10/17/22 20:43 Dose: 200 mg Documented By: MS Vital Signs Vital signs: Vital Signs - 8 hr 10/17/22 09:25 10/17/22 08:30 10/17/22 08:30 Pulse Rate 63 60 Respiratory Rate 26 H Blood Pressure 130/70 148/67 H Pulse Oximetry 94 10/17/22 09:00 10/17/22 09:01 10/17/22 09:01 Pulse Rate 66 71 Respiratory Rate 24 27 H Blood Pressure 130/70 Pulse Oximetry 92 96 10/17/22 09:26 10/17/22 09:26 10/17/22 09:30 Pulse Rate 65 78 Respiratory Rate Blood Pressure 141/67 H Pulse Oximetry 97 94 10/17/22 09:31 10/17/22 09:31 10/17/22 09:33 Pulse Rate 75 71 Respiratory Rate 19 20 Blood Pressure 143/74 H Pulse Oximetry 94 96 10/17/22 09:33 10/17/22 09:35 10/17/22 09:35 Pulse Rate 73 Respiratory Rate 25 H Blood Pressure 141/79 H 140/75 Pulse Oximetry 95 10/17/22 09:40 10/17/22 09:40 10/17/22 09:45 Pulse Rate 65 Respiratory Rate 24 Blood Pressure 153/81 H 148/70 H Pulse Oximetry 97 10/17/22 09:45 10/17/22 09:50 10/17/22 09:50 Pulse Rate 63 67 Respiratory Rate 27 H 27 H Blood Pressure 143/65 H Pulse Oximetry 95 95 10/17/22 09:56 10/17/22 09:56 10/17/22 10:00 Pulse Rate 63 74 Respiratory Rate 30 H 29 H Blood Pressure 162/73 H Pulse Oximetry 97 95 10/17/22 10:01 10/17/22 10:01 10/17/22 10:05 Pulse Rate 73 63 Respiratory Rate 32 H 21 Blood Pressure 182/80 H Pulse Oximetry 96 94 10/17/22 10:05 10/17/22 10:10 10/17/22 10:10 Pulse Rate 62 Respiratory Rate 29 H Blood Pressure 144/64 H 153/66 H Pulse Oximetry 96 10/17/22 10:15 10/17/22 10:15 10/17/22 10:20 Pulse Rate 64 64 Respiratory Rate 19 27 H Blood Pressure 149/63 H Pulse Oximetry 94 92 10/17/22 10:20 10/17/22 10:25 10/17/22 10:25 Pulse Rate 65 Respiratory Rate 23 Blood Pressure 158/67 H 160/69 H Pulse Oximetry 91 10/17/22 10:30 10/17/22 10:30 10/17/22 10:35 Pulse Rate 64 66 Respiratory Rate 18 20 Blood Pressure 156/70 H Pulse Oximetry 92 92 10/17/22 10:35 10/17/22 10:45 10/17/22 10:45 Pulse Rate 82 Respiratory Rate Blood Pressure 148/67 H 181/71 H Pulse Oximetry 87 L 10/17/22 10:50 10/17/22 10:50 10/17/22 10:55 Pulse Rate 71 68 Respiratory Rate Blood Pressure 166/71 H Pulse Oximetry 95 93 10/17/22 10:55 10/17/22 11:00 10/17/22 11:26 Pulse Rate 71 72 Respiratory Rate 57 H Blood Pressure 148/70 H Pulse Oximetry 95 96 10/17/22 11:26 10/17/22 11:30 10/17/22 11:30 Pulse Rate 63 Respiratory Rate 25 H Blood Pressure 134/69 143/63 H Pulse Oximetry 96 10/17/22 11:35 10/17/22 11:35 10/17/22 11:40 Pulse Rate 64 Respiratory Rate 29 H Blood Pressure 141/63 H 144/67 H Pulse Oximetry 97 10/17/22 11:40 10/17/22 11:45 10/17/22 11:45 Pulse Rate 65 61 Respiratory Rate 26 H 23 Blood Pressure 143/63 H Pulse Oximetry 97 96 10/17/22 11:51 10/17/22 11:51 10/17/22 11:56 Pulse Rate 61 75 Respiratory Rate 25 H 21 Blood Pressure 111/52 L Pulse Oximetry 98 97 10/17/22 11:56 10/17/22 12:00 10/17/22 12:00 Pulse Rate 63 Respiratory Rate 22 Blood Pressure 142/64 H 144/64 H Pulse Oximetry 96 10/17/22 12:05 10/17/22 12:05 10/17/22 12:11 Pulse Rate 62 Respiratory Rate 22 Blood Pressure 143/64 H 162/73 H Pulse Oximetry 98 10/17/22 12:11 Pulse Rate 64 Respiratory Rate 26 H Blood Pressure Pulse Oximetry 97 <Fina Valle DO - Last Filed: 10/18/22 10:59> Orders Ordered: Discontinued Medications Clonidine HCl (Clonidine 0.1 Mg Tablet) 0.1 mg PO DAILY PRN PRN Reason: blood pressure Last Admin: 10/19/22 09:41 Dose: 0.1 mg Documented By: Admin: 10/17/22 15:04 Dose: 0.1 mg Documented By: THERESA Clotrimazole (Clotrimazole 1% Vag Crm 45 Gm) 1 applic TOP BID [facility] Last Admin: 10/19/22 11:56 Dose: 1 applic Documented By: Admin: 10/19/22 11:22 Dose: Not Given Documented By: BV Diphenhydramine HCl (Diphenhydramine 25 Mg Tablet) 50 mg PO NOW ONE Stop: 10/17/22 18:59 Last Admin: 10/17/22 23:27 Dose: Not Given Documented By: Diphenhydramine HCl (Diphenhydramine 25 Mg Tablet) 50 mg PO Q6HR PRN PRN Reason: Itching Last Admin: 10/19/22 09:36 Dose: 50 mg Documented By: Admin: 10/17/22 19:23 Dose: 50 mg Documented By: THERESA Enoxaparin Sodium (Enoxaparin 40 Mg/0.4 Ml Syringe) 40 mg SUBCUT NOW ONE Stop: 10/17/22 14:15 Last Admin: 10/17/22 15:16 Dose: 40 mg Documented By: THERESA Enoxaparin Sodium (Enoxaparin 40 Mg/0.4 Ml Syringe) 40 mg SUBCUT BID [facility] Last Admin: 10/18/22 09:19 Dose: Not Given Documented By: [facility] Enoxaparin Sodium (Enoxaparin 40 Mg/0.4 Ml Syringe) 40 mg SUBCUT BID [facility] Last Admin: 10/19/22 09:40 Dose: Not Given Documented By: Admin: 10/18/22 21:03 Dose: Not Given Documented By: AM Fluconazole (Fluconazole 100 Mg Tablet) 150 mg PO NOW ONE Stop: 10/19/22 09:26 Last Admin: 10/19/22 10:36 Dose: 150 mg Documented By: MAXIMILIAN Furosemide (Furosemide 20 Mg/2 Ml Vial) 20 mg IV NOW ONE Stop: 10/17/22 13:35 Last Admin: 10/17/22 15:03 Dose: 20 mg Documented By: THERESA Furosemide (Furosemide 20 Mg Tablet) 10 mg PO DAILY [facility] Glimepiride (Glimepiride 2 Mg Tablet) 4 mg PO BID [facility] Last Admin: 10/19/22 09:36 Dose: 4 mg Documented By: Admin: 10/18/22 21:01 Dose: 4 mg Documented By: Admin: 10/18/22 09:13 Dose: 4 mg Documented By: Admin: 10/17/22 20:44 Dose: 4 mg Documented By: MS Hydrochlorothiazide (Hydrochlorothiazide 25 Mg Tablet) 50 mg PO DAILY [facility] Hydrochlorothiazide (Hydrochlorothiazide 25 Mg Tablet) 50 mg PO DAILY [facility] Last Admin: 10/19/22 09:37 Dose: 50 mg Documented By: Admin: 10/18/22 09:14 Dose: Not Given Documented By: ISHMAEL Sodium Chloride (Normal Saline 0.9%) 250 mls @ 1,000 mls/hr IV BOLUS ONE Stop: 10/18/22 00:04 Last Admin: 10/18/22 00:02 Dose: 1,000 mls/hr Documented By: Levothyroxine Sodium (Levothyroxine 100 Mcg Tablet) 100 mcg PO 0600 [facility] Last Admin: 10/19/22 06:25 Dose: 100 mcg Documented By: Admin: 10/18/22 05:17 Dose: 100 mcg Documented By: Lisinopril (Lisinopril 20 Mg Tablet) 40 mg PO DAILY [facility] Last Admin: 10/19/22 09:36 Dose: 40 mg Documented By: Admin: 10/18/22 09:14 Dose: Not Given Documented By: ISHMAEL Lorazepam (Lorazepam 0.5 Mg Tablet) 0.5 mg PO Q4HR PRN PRN Reason: Anxiety/ chest pain Last Admin: 10/18/22 15:31 Dose: 0.5 mg Documented By: RLRenata Admin: 10/17/22 22:18 Dose: 0.5 mg Documented By: Admin: 10/17/22 17:46 Dose: 0.5 mg Documented By: THERESA Lorazepam (Lorazepam 1 Mg Tablet) 0.5 mg PO BID [facility] Last Admin: 10/19/22 09:37 Dose: 0.5 mg Documented By: Admin: 10/18/22 21:00 Dose: 0.5 mg Documented By: Admin: 10/18/22 19:59 Dose: Not Given Documented By: ISHMAEL Methylprednisolone (Methylprednisolone 125 Mg/2 Ml Vial) 60 mg IV NOW ONE Stop: 10/18/22 15:51 Last Admin: 10/18/22 16:13 Dose: 60 mg Documented By: ISHMAEL Nitroglycerin (Nitroglycerin 0.4 Mg Sl Tab) 0.4 mg SL NOW ONE Stop: 10/17/22 09:12 Last Admin: 10/17/22 09:25 Dose: 0.4 mg Documented By: NR Nitroglycerin (Nitroglycerin 0.4 Mg Sl Tab) 0.4 mg SL [id number] PRN PRN Reason: Chest Pain Nf - Pioglitazone 30 (Mg Tablet) 30 mg PO DAILY [facility] Last Admin: 10/19/22 09:38 Dose: Not Given Documented By: Admin: 10/18/22 09:15 Dose: Not Given Documented By: ISHMAEL Oxycodone HCl (Oxycodone Ir 5 Mg Tablet) 20 mg PO NOW ONE Stop: 10/17/22 09:17 Last Admin: 10/17/22 09:35 Dose: 20 mg Documented By: [place] Oxycodone HCl (Oxycodone Ir 10 Mg Tablet) 20 mg PO TID [facility] Last Admin: 10/19/22 09:36 Dose: 20 mg Documented By: Admin: 10/18/22 21:02 Dose: 20 mg Documented By: Admin: 10/18/22 14:29 Dose: 20 mg Documented By: Admin: 10/18/22 09:13 Dose: 20 mg Documented By: Admin: 10/17/22 20:44 Dose: 20 mg Documented By: Admin: 10/17/22 15:03 Dose: 20 mg Documented By: THERESA Pantoprazole Sodium (Pantoprazole Dr 40 Mg Tablet) 40 mg PO 0700,2100 [facility] Last Admin: 10/19/22 06:24 Dose: 40 mg Documented By: Admin: 10/19/22 02:37 Dose: 40 mg Documented By: Admin: 10/18/22 21:03 Dose: Not Given Documented By: AM Pantoprazole Sodium (Pantoprazole 40 Mg Vial) 80 mg IV NOW ONE Stop: 10/18/22 18:15 Last Admin: 10/18/22 21:03 Dose: Not Given Documented By: AM Potassium Chloride (Potassium Chloride 20 Meq Tab) [facility] Admin: 10/19/22 09:37 Dose: 20 meq Documented By: Admin: 10/18/22 09:13 Dose: 20 meq Documented By: RLRenata Pravastatin Sodium (Pravastatin 20 Mg Tablet) 20 mg PO BEDTIME [facility] Last Admin: 10/18/22 21:02 Dose: 20 mg Documented By: Admin: 10/17/22 20:45 Dose: 20 mg Documented By: MS Tizanidine HCl (Tizanidine 4 Mg Tablet) 4 mg PO Q6H [facility] Last Admin: 10/19/22 13:22 Dose: 4 mg Documented By: Admin: 10/19/22 09:37 Dose: 4 mg Documented By: Admin: 10/19/22 01:06 Dose: 4 mg Documented By: Admin: 10/18/22 21:01 Dose: 4 mg Documented By: Admin: 10/18/22 14:35 Dose: 4 mg Documented By: Admin: 10/18/22 06:51 Dose: 4 mg Documented By: Admin: 10/18/22 01:56 Dose: 4 mg Documented By: Admin: 10/17/22 20:45 Dose: 4 mg Documented By: Admin: 10/17/22 15:08 Dose: Not Given Documented By: MIRYAMD Trazodone HCl (Trazodone 50 Mg Tablet) 200 mg PO BEDTIME [facility] Admin: 10/18/22 21:04 Dose: Not Given Documented By: Admin: 10/17/22 20:43 Dose: 200 mg Documented By: Vital Signs Vital signs: Vital Signs - 8 hr 10/17/22 09:25 10/17/22 08:30 10/17/22 08:30 Pulse Rate 63 60 Respiratory Rate 26 H Blood Pressure 130/70 148/67 H Pulse Oximetry 94 10/17/22 09:00 10/17/22 09:01 10/17/22 09:01 Pulse Rate 66 71 Respiratory Rate 24 27 H Blood Pressure 130/70 Pulse Oximetry 92 96 10/17/22 09:26 10/17/22 09:26 10/17/22 09:30 Pulse Rate 65 78 Respiratory Rate Blood Pressure 141/67 H Pulse Oximetry 97 94 10/17/22 09:31 10/17/22 09:31 10/17/22 09:33 Pulse Rate 75 71 Respiratory Rate 19 20 Blood Pressure 143/74 H Pulse Oximetry 94 96 10/17/22 09:33 10/17/22 09:35 10/17/22 09:35 Pulse Rate 73 Respiratory Rate 25 H Blood Pressure 141/79 H 140/75 Pulse Oximetry 95 10/17/22 09:40 10/17/22 09:40 10/17/22 09:45 Pulse Rate 65 Respiratory Rate 24 Blood Pressure 153/81 H 148/70 H Pulse Oximetry 97 10/17/22 09:45 10/17/22 09:50 10/17/22 09:50 Pulse Rate 63 67 Respiratory Rate 27 H 27 H Blood Pressure 143/65 H Pulse Oximetry 95 95 10/17/22 09:56 10/17/22 09:56 10/17/22 10:00 Pulse Rate 63 74 Respiratory Rate 30 H 29 H Blood Pressure 162/73 H Pulse Oximetry 97 95 10/17/22 10:01 10/17/22 10:01 10/17/22 10:05 Pulse Rate 73 63 Respiratory Rate 32 H 21 Blood Pressure 182/80 H Pulse Oximetry 96 94 10/17/22 10:05 10/17/22 10:10 10/17/22 10:10 Pulse Rate 62 Respiratory Rate 29 H Blood Pressure 144/64 H 153/66 H Pulse Oximetry 96 10/17/22 10:15 10/17/22 10:15 10/17/22 10:20 Pulse Rate 64 64 Respiratory Rate 19 27 H Blood Pressure 149/63 H Pulse Oximetry 94 92 10/17/22 10:20 10/17/22 10:25 10/17/22 10:25 Pulse Rate 65 Respiratory Rate 23 Blood Pressure 158/67 H 160/69 H Pulse Oximetry 91 10/17/22 10:30 10/17/22 10:30 10/17/22 10:35 Pulse Rate 64 66 Respiratory Rate 18 20 Blood Pressure 156/70 H Pulse Oximetry 92 92 10/17/22 10:35 10/17/22 10:45 10/17/22 10:45 Pulse Rate 82 Respiratory Rate Blood Pressure 148/67 H 181/71 H Pulse Oximetry 87 L 10/17/22 10:50 10/17/22 10:50 10/17/22 10:55 Pulse Rate 71 68 Respiratory Rate Blood Pressure 166/71 H Pulse Oximetry 95 93 10/17/22 10:55 10/17/22 11:00 10/17/22 11:26 Pulse Rate 71 72 Respiratory Rate 57 H Blood Pressure 148/70 H Pulse Oximetry 95 96 10/17/22 11:26 10/17/22 11:30 10/17/22 11:30 Pulse Rate 63 Respiratory Rate 25 H Blood Pressure 134/69 143/63 H Pulse Oximetry 96 10/17/22 11:35 10/17/22 11:35 10/17/22 11:40 Pulse Rate 64 Respiratory Rate 29 H Blood Pressure 141/63 H 144/67 H Pulse Oximetry 97 10/17/22 11:40 10/17/22 11:45 10/17/22 11:45 Pulse Rate 65 61 Respiratory Rate 26 H 23 Blood Pressure 143/63 H Pulse Oximetry 97 96 10/17/22 11:51 10/17/22 11:51 10/17/22 11:56 Pulse Rate 61 75 Respiratory Rate 25 H 21 Blood Pressure 111/52 L Pulse Oximetry 98 97 10/17/22 11:56 10/17/22 12:00 10/17/22 12:00 Pulse Rate 63 Respiratory Rate 22 Blood Pressure 142/64 H 144/64 H Pulse Oximetry 96 10/17/22 12:05 10/17/22 12:05 10/17/22 12:11 Pulse Rate 62 Respiratory Rate 22 Blood Pressure 143/64 H 162/73 H Pulse Oximetry 98 10/17/22 12:11 Pulse Rate 64 Respiratory Rate 26 H Blood Pressure Pulse Oximetry 97 Medical Decision Making <Herber Rodriguez, - Last Filed: 10/20/22 18:02> Lab Data Lab results reviewed: Yes I reviewed the patient's lab results. 10/19/22 07:53 10/19/22 07:53 Labs: Lab Results 10/17/22 10/17/22 10/17/22 Range/Units 06:37 07:41 09:55 WBC 7.5 (4.5-11.0) X10^3/uL RBC 4.76 (4.0-5.2) X10^6/uL Hgb 13.0 (12.0-16.0) g/dL Hct 38.8 (36-46) % MCV 81.5 (80-100) fL MCH 27.3 (26-34) PG MCHC 33.5 (30-36) % RDW 15.0 H (11.6-14.8) % Plt Count 283 (150-400) X10^3/uL Neut % (Auto) 66.3 (50-75) % Lymph % (Auto) 24.3 L (25-40) % [place] % (Auto) 8.2 (3-14) % Eos % (Auto) 0.5 L (2-4) % Baso % (Auto) 0.7 (0-2) % Neut # (Auto) 5000 (3518-8442) /uL Lymph # (Auto) 1800 (2513-8114) /uL [place] # (Auto) 600 (0-900) /uL Eos # (Auto) 0 (0-450) /uL Baso # (Auto) 100 (0-100) /uL D-Dimer 765 H (<500) ng/ml Sodium 136 L (137-145) mmol/L Potassium 4.1 (3.4-5.1) mmol/L Chloride 101 (98-107) mmol/L Carbon Dioxide 27 (22-32) mmol/L BUN 18 H (7-17) mg/dL Creatinine 0.65 (0.52-1.04) mg/dL Estimated GFR > 60 (>60) mL/min BUN/Creatinine Ratio 27.7 H (6-22) Glucose 142 H (80-110) mg/dL Calcium 10.2 (8.4-10.2) mg/dL Magnesium 1.8 (1.6-2.3) mg/dL Total Bilirubin 0.6 (0.2-1.3) mg/dL AST 17 (14-36) IU/L ALT 14 (<35) IU/L Alkaline Phosphatase 92 (38-126) U/L Total Creatine Kinase 39 (30-135) U/L Troponin I < 0.012 (0.01-0.034) ng/mL NT-Pro-B Natriuret Pep 434 H (<125) pg/mL Total Protein 7.3 (6.3-8.2) g/dL Albumin 4.2 (3.5-5.0) g/dL Globulin 3.1 (1.7-4.1) g/dL Albumin/Globulin Ratio 1.4 (1.0-2.8) Lipase 30 (23-300) U/L Procalcitonin 0.05 (<0.5) ng/mL 10/17/22 Range/Units 09:55 WBC (4.5-11.0) X10^3/uL RBC (4.0-5.2) X10^6/uL Hgb (12.0-16.0) g/dL Hct (36-46) % MCV (80-100) fL MCH (26-34) PG MCHC (30-36) % RDW (11.6-14.8) % Plt Count (150-400) X10^3/uL Neut % (Auto) (50-75) % Lymph % (Auto) (25-40) % [place] % (Auto) (3-14) % Eos % (Auto) (2-4) % Baso % (Auto) (0-2) % Neut # (Auto) (8559-3350) /uL Lymph # (Auto) (7013-6777) /uL [place] # (Auto) (0-900) /uL Eos # (Auto) (0-450) /uL Baso # (Auto) (0-100) /uL D-Dimer (<500) ng/ml Sodium (137-145) mmol/L Potassium (3.4-5.1) mmol/L Chloride (98-107) mmol/L Carbon Dioxide (22-32) mmol/L BUN (7-17) mg/dL Creatinine (0.52-1.04) mg/dL Estimated GFR (>60) mL/min BUN/Creatinine Ratio (6-22) Glucose (80-110) mg/dL Calcium (8.4-10.2) mg/dL Magnesium (1.6-2.3) mg/dL Total Bilirubin (0.2-1.3) mg/dL AST (14-36) IU/L ALT (<35) IU/L Alkaline Phosphatase (38-126) U/L Total Creatine Kinase (30-135) U/L Troponin I < 0.012 (0.01-0.034) ng/mL NT-Pro-B Natriuret Pep (<125) pg/mL Total Protein (6.3-8.2) g/dL Albumin (3.5-5.0) g/dL Globulin (1.7-4.1) g/dL Albumin/Globulin Ratio (1.0-2.8) Lipase (23-300) U/L Procalcitonin (<0.5) ng/mL Urine Dip Bedside Urine Glucose Negative Bedside Urine Bilirubin - Negative Bedside Urine Ketone - Negative Urine Specific [place] 1.030 Bedside Urine Occult Blood - Negative Bedside Urine pH 6.0 Bedside Urine Protein - Negative Bedside Urine Urobilinogen - Negative Bedside Urine Nitrite - Negative Bedside Urine Leukocytes - Negative Esterase Point of care testing: Urine Dip Bedside Urine Glucose Negative Bedside Urine Bilirubin - Negative Bedside Urine Ketone - Negative Urine Specific [place] 1.030 Bedside Urine Occult Blood - Negative Bedside Urine pH 6.0 Bedside Urine Protein - Negative Bedside Urine Urobilinogen - Negative Bedside Urine Nitrite - Negative Bedside Urine Leukocytes - Negative Esterase ECG Data Attestation: I personally reviewed and interpreted this ECG as follows: Prior ECG tracings: available for review Interpretation: Sinus bradycardia Ventricular rate of 58 Normal axis Normal QRS T-wave inversions V4 V5 V6 which are new compared to EKG from 11/04/[address] elevations MDM Narrative Medical decision making narrative: Patient does have a clear lung exam. Is not hypoxic. Is not tachypneic. Today's EKG does show inverted T-waves laterally which is new from 11/04/2019 which is the last EKG here in our system however I was able to review her emergency department visit from 3 days ago where he mentions inverted T-waves laterally which was not new on an EKG that they could compared to. It appears that her presentation today is very similar to that presentation. According to the note patient had a fairly unremarkable workup with a negative chest x-ray, EKG that is described very similar to the EKG from today and a chest x-ray that was unremarkable. She was given oral hydrochlorothiazide because the patient refused to take Lasix because it has caused her cramps in the past. She was also given a DuoNeb. It appears that she returned to baseline and was discharged home. Labs during this visit are pending. Care turned over to to follow-up and disposition. <Fina Valle, DO - Last Filed: 10/18/22 10:59> Lab Data Labs: Lab Results 10/17/22 10/17/22 10/17/22 Range/Units 06:37 07:41 09:55 WBC 7.5 (4.5-11.0) X10^3/uL RBC 4.76 (4.0-5.2) X10^6/uL Hgb 13.0 (12.0-16.0) g/dL Hct 38.8 (36-46) % MCV 81.5 (80-100) fL MCH 27.3 (26-34) PG MCHC 33.5 (30-36) % RDW 15.0 H (11.6-14.8) % Plt Count 283 (150-400) X10^3/uL Neut % (Auto) 66.3 (50-75) % Lymph % (Auto) 24.3 L (25-40) % [place] % (Auto) 8.2 (3-14) % Eos % (Auto) 0.5 L (2-4) % Baso % (Auto) 0.7 (0-2) % Neut # (Auto) 5000 (5323-9903) /uL Lymph # (Auto) 1800 (7042-5616) /uL [place] # (Auto) 600 (0-900) /uL Eos # (Auto) 0 (0-450) /uL Baso # (Auto) 100 (0-100) /uL D-Dimer 765 H (<500) ng/ml Sodium 136 L (137-145) mmol/L Potassium 4.1 (3.4-5.1) mmol/L Chloride 101 (98-107) mmol/L Carbon Dioxide 27 (22-32) mmol/L BUN 18 H (7-17) mg/dL Creatinine 0.65 (0.52-1.04) mg/dL Estimated GFR > 60 (>60) mL/min BUN/Creatinine Ratio 27.7 H (6-22) Glucose 142 H (80-110) mg/dL Calcium 10.2 (8.4-10.2) mg/dL Magnesium 1.8 (1.6-2.3) mg/dL Total Bilirubin 0.6 (0.2-1.3) mg/dL AST 17 (14-36) IU/L ALT 14 (<35) IU/L Alkaline Phosphatase 92 (38-126) U/L Total Creatine Kinase 39 (30-135) U/L Troponin I < 0.012 (0.01-0.034) ng/mL NT-Pro-B Natriuret Pep 434 H (<125) pg/mL Total Protein 7.3 (6.3-8.2) g/dL Albumin 4.2 (3.5-5.0) g/dL Globulin 3.1 (1.7-4.1) g/dL Albumin/Globulin Ratio 1.4 (1.0-2.8) Lipase 30 (23-300) U/L Procalcitonin 0.05 (<0.5) ng/mL 10/17/22 Range/Units 09:55 WBC (4.5-11.0) X10^3/uL RBC (4.0-5.2) X10^6/uL Hgb (12.0-16.0) g/dL Hct (36-46) % MCV (80-100) fL MCH (26-34) PG MCHC (30-36) % RDW (11.6-14.8) % Plt Count (150-400) X10^3/uL Neut % (Auto) (50-75) % Lymph % (Auto) (25-40) % [place] % (Auto) (3-14) % Eos % (Auto) (2-4) % Baso % (Auto) (0-2) % Neut # (Auto) (4099-3830) /uL Lymph # (Auto) (0564-2302) /uL [place] # (Auto) (0-900) /uL Eos # (Auto) (0-450) /uL Baso # (Auto) (0-100) /uL D-Dimer (<500) ng/ml Sodium (137-145) mmol/L Potassium (3.4-5.1) mmol/L Chloride (98-107) mmol/L Carbon Dioxide (22-32) mmol/L BUN (7-17) mg/dL Creatinine (0.52-1.04) mg/dL Estimated GFR (>60) mL/min BUN/Creatinine Ratio (6-22) Glucose (80-110) mg/dL Calcium (8.4-10.2) mg/dL Magnesium (1.6-2.3) mg/dL Total Bilirubin (0.2-1.3) mg/dL AST (14-36) IU/L ALT (<35) IU/L Alkaline Phosphatase (38-126) U/L Total Creatine Kinase (30-135) U/L Troponin I < 0.012 (0.01-0.034) ng/mL NT-Pro-B Natriuret Pep (<125) pg/mL Total Protein (6.3-8.2) g/dL Albumin (3.5-5.0) g/dL Globulin (1.7-4.1) g/dL Albumin/Globulin Ratio (1.0-2.8) Lipase (23-300) U/L Procalcitonin (<0.5) ng/mL Urine Dip Bedside Urine Glucose Negative Bedside Urine Bilirubin - Negative Bedside Urine Ketone - Negative Urine Specific [place] 1.030 Bedside Urine Occult Blood - Negative Bedside Urine pH 6.0 Bedside Urine Protein - Negative Bedside Urine Urobilinogen - Negative Bedside Urine Nitrite - Negative Bedside Urine Leukocytes - Negative Esterase Point of care testing: Urine Dip Bedside Urine Glucose Negative Bedside Urine Bilirubin - Negative Bedside Urine Ketone - Negative Urine Specific [place] 1.030 Bedside Urine Occult Blood - Negative Bedside Urine pH 6.0 Bedside Urine Protein - Negative Bedside Urine Urobilinogen - Negative Bedside Urine Nitrite - Negative Bedside Urine Leukocytes - Negative Esterase Imaging Data Chest x-ray: Radiologist's Impression: [address] [address] XRay Report Signed Patient: Michelle Cerda MR#: [id number] : 1950 Acct:[id number] Age/Sex: 72 / F Date of Service: 10/17/22 Loc: ED Accession Number: [id number] ?? Procedure: XR chest 1V Ordering Provider: Herber Rodriguez D.O. PROCEDURE:? XR CHEST 1V ? INDICATIONS:? Shortness of breath ? TECHNIQUE:? One view of the chest was acquired.? ? COMPARISON:? [facility], CR, XR CHEST 1 VIEW, 10/14/2022, 2:26.? [facility], CR, XR CHEST 1V, 11/04/2019, 18:47.? [facility], CT, CT ANGIO CHEST PE, 09/15/2022, 13:28. ? FINDINGS:? ? Surgical changes and devices:? None.? ? Lungs and pleura:? Lung volumes are low.? There are mild bibasilar opacities, possibly atelectasis.? No dense airspace disease or pleural effusions. ? Mediastinum:? Heart size is at the upper limit of normal. ? Bones and chest wall:? No suspicious bony lesions.? Overlying soft tissues appear unremarkable.? ? IMPRESSION:? No dense consolidation.? Possible mild basal atelectasis or aspiration.? Dictated by: Chilango Romano M.D. on 10/17/2022 at 7:16 ? ? Approved by: Chilango Romano M.D. on 10/17/2022 at 7:18?? CT scan - chest: Radiologist's Impression: [address] [address] [address] Scan Report Signed Patient: Michelle Cerda MR#: [id number] : 1950 Acct:[id number] Age/Sex: 72 / F Date of Service: 10/17/22 Loc: ED Accession Number: [id number] ?? Procedure: CT angio chest PE protocol Ordering Provider: Fina Valle D.O. PROCEDURE:? CT ANGIO CHEST PE PROTOCOL ? INDICATIONS:? intermittent shortness of breath, +dimer ? TECHNIQUE:? After the administration of intravenous contrast, 2 mm thick sections acquired from the pulmonary apices to the posterior costophrenic angles.? 3-dimensional maximum intensity projection (MIP) coronal and sagittal reformats were then acquired through the thorax.? For radiation dose reduction, the following was used:? automated exposure control, adjustment of mA and/or kV according to patient size.? ? COMPARISON:? [facility], CT, CT ANGIO CHEST PE PROTOCOL, 11/04/2019, 20:27. ? FINDINGS: ? Image quality:? There is suboptimal timing of contrast bolus limiting evaluation of the pulmonary arteries. The pulmonary arteries were adequately visualized to level of the mid segmental pulmonary arteries. ? Pulmonary arteries:? Pulmonary arteries are normal in size, and demonstrate no intraluminal filling defects to suggest central pulmonary embolism.? ? ? Lungs and pleura:? Lungs are clear.? No pleural effusions or pneumothorax.? Central and peripheral airways are patent.? No focal consolidation seen.? Calcified left upper lobe pulmonary nodule is benign.? ? Mediastinum:? Heart size is normal, without pericardial effusion.? No mediastinal or hilar adenopathy.? Thoracic aorta is normal in caliber and enhancement.? Esoph cortney is normal in caliber, with a small hiatal hernia.? Coronary atherosclerotic vascular calcifications are noted.? ? ? Bones and chest wall:? No suspicious bony lesions.? Ribs and thoracic spine aaron ear intact throughout.? Thyroid gland is unremarkable.? No axillary or supraclavicular adenopathy.? Moderate multilevel spondylosis of the imaged spine.? ? Abdomen:? Visualized upper abdominal solid organs appear normal in the early arterial phase of enhancement.? Status post cholecystectomy.? ? IMPRESSION:? ? 1. Limited evaluation secondary to suboptimal timing of contrast bolus.? Within these limitations, no acute pulmonary emboli identified.? No acute right-sided heart strain.? No acute airspace disease. ? 2. Atherosclerosis. ? 3. Status post cholecystectomy.? ? ? Dictated by: Neymar Davidson M.D. on 10/17/2022 at 10:54 ? ? Approved by: Neymar Davidson M.D. on 10/17/2022 at 10:59?? ECG Data Interpretation: Sinus bradycardia Ventricular rate of 58 Normal axis Normal QRS T-wave inversions V4 V5 V6 which are new compared to EKG from 11/04/[address] elevations EKG 2. Sinus rhythm rate of 62 OR 158 QRS of [address] changes. T-wave inversions noted in lateral leads unchanged from prior. MDM Narrative Medical decision making narrative: Patient does have a clear lung exam. Is not hypoxic. Is not tachypneic. Today's EKG does show inverted T-waves laterally which is new from 11/04/2019 which is the last EKG here in our system however I was able to review her emergency department visit from 3 days ago where he mentions inverted T-waves laterally which was not new on an EKG that they could compared to. It appears that her presentation today is very similar to that presentation. According to the note patient had a fairly unremarkable workup with a negative chest x-ray, EKG that is described very similar to the EKG from today and a chest x-ray that was unremarkable. She was given oral hydrochlorothiazide because the patient refused to take Lasix because it has caused her cramps in the past. She was also given a DuoNeb. It appears that she returned to baseline and was discharged home. Labs during this visit are pending. Care turned over to to follow-up and disposition. 10/1522 Leonard: Patient signed out to myself. Patient is seen and evaluated by myself. Chest x-ray shows no acute change, labs, no leukocytosis, normal hemoglobin and platelets. Sodium is 136 potassium is normal BUN 18 with a creatinine of 0.6, glucose 142 electrolytes otherwise normal initial troponins negative BNP is 434 was 119 in 2019, procalcitonin is negative. Patient had workup at [facility] on 10/14/2022. Appears she had BNP checked but was not included in records. There was some discussion about a little bit of CHF flare.. She was discharged home on HCTZ although patient states she was given a prescription for Lasix. Patient describes intermittent shortness of breath that has been coming going for several weeks, typically hours at a time nothing seems to make it better or worse. This episode woke her up from sleep, she does not have a lot of high-risk factors for blood clot did have a femur fracture in January of last year has had some chronic very mild swelling so dimer was included. Repeat troponin and EKG show no dynamic changes. Dimer was elevated CT angio was obtained. Limited evaluation but no acute pulmonary emboli identified to the mid segmental. Patient has new flipped T-waves from EKG from 2019 but based on report received from [facility] physician's note notes flipped T-waves in the lateral leads on their EKG on her most recent visit on so sounds like this is not a new change on her EKG. Echo was performed in the past had an EF of 60 65% according to the report but I do not have the actual echo report. Patient states she was told there was some fluid around her heart but was not a pericardial effusion but was secondary to CHF. Discussed with Dr. Rodriguez, we do not have stress testing over the weekend we can perform serial enzymes but would majority of workup. Patient would still like to stay and have outpatient stress testing is needed. Dr. Dominique accepts for observation. Discharge Plan Departure Patient Disposition: Admitted as Observation Clinical Impression: Dyspnea Admit Date/Time: 10/17/22 12:24 Admit Provider: Nicol Rodriguez
[2022-10-17 06:49] LABS: Add Manual Diff / Slide Review NO; Basophils Absolute Auto 100 /uL (0-100); Basophils Percent Auto 0.7 % (0-2); Eosinophils Absolute Auto 0 /uL (0-450); Eosinophils Percent Auto 0.5 % (2-4); Hematocrit 38.8 % (36-46); Lymphocytes Absolute Auto 1800 /uL (1100-4500); Lymphocytes Percent Auto 24.3 % (25-40); Mean Corpuscular HGB Conc 33.5 % (30-36); Mean Corpuscular Hemoglobin 27.3 PG (26-34); Mean Corpuscular Volume 81.5 fL (80-100); Monocytes Absolute Auto 600 /uL (0-900); Monocytes Percent Auto 8.2 % (3-14); Neutrophils Absolute Auto 5000 /uL (1500-7000); Neutrophils Percent Auto 66.3 % (50-75); Platelet Count 283 X10^3/uL (150-400); Red Blood Cell Count 4.76 X10^6/uL (4.0-5.2); White Blood Cell Count 7.5 X10^3/uL (4.5-11.0)
[2022-10-17 08:00] LABS: Alanine Aminotransferase 14 IU/L (<35); Albumin 4.2 g/dL (3.5-5.0); Albumin Globulin Ratio 1.4 (1.0-2.8); Alkaline Phosphatase 92 U/L (38-126); Aspartate Aminotransferase 17 IU/L (14-36); BUN Creatinine Ratio 27.7 (6-22); Bilirubin Total 0.6 mg/dL (0.2-1.3); Blood Urea Nitrogen 18 mg/dL (7-17); Calcium 10.2 mg/dL (8.4-10.2); Carbon Dioxide 27 mmol/L (22-32); Chloride 101 mmol/L (98-107); Creatine Kinase 39 U/L (30-135); Estimated Glomerular Filt Rate > 60 mL/min (>60); Globulin 3.1 g/dL (1.7-4.1); Glucose 142 mg/dL (80-110); HEMOLYSIS < 15 (0-50); Lipase 30 U/L (23-300); Magnesium 1.8 mg/dL (1.6-2.3); Potassium 4.1 mmol/L (3.4-5.1); Sodium 136 mmol/L (137-145); Total Protein 7.3 g/dL (6.3-8.2)
[2022-10-17 08:12] LABS: NT-proBNP (BNP-Adult 18+) 434 pg/mL (<125); Troponin I < 0.012 ng/mL (0.01-0.034)
[2022-10-17 08:28] LABS: Procalcitonin 0.05 ng/mL (<0.5)
[2022-10-17] MEDS: NITROGLYCERIN 0.4 MG SL TAB SL (09:25)
[2022-10-17] MEDS: OXYCODONE IR 5 MG TABLET 20 MG PO (09:35)
[2022-10-17 10:14] LABS: D Dimer 765 ng/ml (<500)
--- NOTE | 2022-10-17 10:25 | DI.CT.S_ITS ---
PROCEDURE: CT ANGIO CHEST PE PROTOCOL INDICATIONS: intermittent shortness of breath, +dimer TECHNIQUE: After the administration of intravenous contrast, 2 mm thick sections acquired from the pulmonary apices to the posterior costophrenic angles. 3-dimensional maximum intensity projection (MIP) coronal and sagittal reformats were then acquired through the thorax. For radiation dose reduction, the following was used: automated exposure control, adjustment of mA and/or kV according to patient size. COMPARISON: [facility], CT, CT ANGIO CHEST PE PROTOCOL, 11/04/2019, 20:27. FINDINGS: Image quality: There is suboptimal timing of contrast bolus limiting evaluation of the pulmonary arteries. The pulmonary arteries were adequately visualized to level of the mid segmental pulmonary arteries. Pulmonary arteries: Pulmonary arteries are normal in size, and demonstrate no intraluminal filling defects to suggest central pulmonary embolism. Lungs and pleura: Lungs are clear. No pleural effusions or pneumothorax. Central and peripheral airways are patent. No focal consolidation seen. Calcified left upper lobe pulmonary nodule is benign. Mediastinum: Heart size is normal, without pericardial effusion. No mediastinal or hilar adenopathy. Thoracic aorta is normal in caliber and enhancement. Esophagus is normal in caliber, with a small hiatal hernia. Coronary atherosclerotic vascular calcifications are noted. Bones and chest wall: No suspicious bony lesions. Ribs and thoracic spine appear intact throughout. Thyroid gland is unremarkable. No axillary or supraclavicular adenopathy. Moderate multilevel spondylosis of the imaged spine. Abdomen: Visualized upper abdominal solid organs appear normal in the early arterial phase of enhancement. Status post cholecystectomy. IMPRESSION: 1. Limited evaluation secondary to suboptimal timing of contrast bolus. Within these limitations, no acute pulmonary emboli identified. No acute right-sided heart strain. No acute airspace disease. 2. Atherosclerosis. 3. Status post cholecystectomy. Dictated by: Neymar Davidson M.D. on 10/17/2022 at 10:54 Approved by: Neymar Davidson M.D. on 10/17/2022 at 10:59
[2022-10-17 10:27] LABS: Troponin I < 0.012 ng/mL (0.01-0.034)
--- NOTE | 2022-10-17 12:02 | PC.NURSE ---
pt c/o of increasing tightness in her chest that is almost feeling worse than previously. notified provider. repeat EKG ordered
--- NOTE | 2022-10-17 13:10 | PM.HP.1 ---
History of Present Illness History of Present Illness Date Patient Seen: 10/17/22 Chief complaint: Dyspnea, CHF Narrative: Michelle Cerda is a 72-year-old female who is presented for evaluation shortness of breath.? She stated that a couple days ago she started to have shortness of breath.? She went to an outside facility where she was diagnosed with ?the beginnings of CHF ? and that she was started on Lasix.? She does not know the dose but she knows that she takes it twice a day.? She stated that on the morning of presentation, she woke up with shortness of breath.? She was also coughing.? She was feeling like she can not get a deep breath.? She also had some sharp left-sided chest discomfort.? She has been taking all her medications as directed.? No lower extremity swelling. Not having any fever chills nausea vomiting or diaphoresis. No abdominal pain constipation or diarrhea no dysuria or hematuria. Able to move all extremities volitionally. No numbness or tingling in any extremity. [facility] Medical History Asthma Diabetes Hyperlipidemia Hypertension Osteoarthritis Social History household members: children Smoking Status: Never smoker alcohol intake: current Medical History Asthma Diabetes Hyperlipidemia Hypertension Osteoarthritis Social History household members: children Smoking Status: Never smoker alcohol intake: current Medical History Asthma Diabetes Hyperlipidemia Hypertension Osteoarthritis Social History household members: children Smoking Status: Never smoker alcohol intake: current Smoking Status: Never smoker alcohol intake frequency: 0-2 drinks per day Substance Use Type: does not use Meds Home Medications and Allergies Home Medications Medication Instructions Recorded Confirmed Type clonidine HCl 0.1 mg tablet 0.1 mg PO DAILY PRN blood pressure 10/17/22 10/17/22 History glimepiride 4 mg tablet 4 mg PO BID 10/17/22 10/17/22 History hydrochlorothiazide 25 mg tablet 25 mg PO QAM 10/17/22 10/17/22 History levothyroxine 100 mcg tablet 100 mcg PO QAM 10/17/22 10/17/22 History lisinopril 40 mg tablet 40 mg PO DAILY 10/17/22 10/17/22 History oxycodone 20 mg tablet 20 mg PO 3XD 10/17/22 10/17/22 History pioglitazone 30 mg tablet 30 mg PO DAILY 10/17/22 10/17/22 History tizanidine 4 mg tablet 4 mg PO Q6H 10/17/22 10/17/22 History trazodone 100 mg tablet 200 mg PO QPM 10/17/22 10/17/22 History Allergies Allergy/AdvReac Type Severity Reaction Status Date / Time clindamycin Allergy Unknown Verified 09/06/22 15:56 metoprolol AdvReac Unknown Verified 09/06/22 15:56 NSAIDS (Non-Steroidal AdvReac Unknown Verified 09/06/22 15:56 Anti-Inflamma Review of Systems Review of Systems Narrative: Fourteen system review was completed and pertinent findings are in the history of chief complaint. Exam Vital Signs (past 8 hours): - 10/17/22 05:58 10/17/22 07:10 10/17/22 07:30 Temperature 97.8 F Pulse Rate 59 L 53 L 56 L Respiratory Rate 20 Blood Pressure 143/65 H Pulse Oximetry 98 99 Oxygen Delivery Method Room Air 10/17/22 07:31 10/17/22 07:31 10/17/22 08:00 Temperature Pulse Rate 55 L 53 L Respiratory Rate Blood Pressure 188/77 H Pulse Oximetry 98 Oxygen Delivery Method 10/17/22 08:02 10/17/22 08:02 10/17/22 09:25 Temperature Pulse Rate 55 L 63 Respiratory Rate 13 Blood Pressure 168/70 H 130/70 Pulse Oximetry 99 Oxygen Delivery Method 10/17/22 08:30 10/17/22 08:30 10/17/22 09:00 Temperature Pulse Rate 60 66 Respiratory Rate 26 H 24 Blood Pressure 148/67 H Pulse Oximetry 94 92 Oxygen Delivery Method 10/17/22 09:01 10/17/22 09:01 10/17/22 09:26 Temperature Pulse Rate 71 65 Respiratory Rate 27 H Blood Pressure 130/70 Pulse Oximetry 96 97 Oxygen Delivery Method 10/17/22 09:26 10/17/22 09:30 10/17/22 09:31 Temperature Pulse Rate 78 75 Respiratory Rate 19 Blood Pressure 141/67 H Pulse Oximetry 94 94 Oxygen Delivery Method 10/17/22 09:31 10/17/22 09:33 10/17/22 09:33 Temperature Pulse Rate 71 Respiratory Rate 20 Blood Pressure 143/74 H 141/79 H Pulse Oximetry 96 Oxygen Delivery Method 10/17/22 09:35 10/17/22 09:35 10/17/22 09:40 Temperature Pulse Rate 73 65 Respiratory Rate 25 H 24 Blood Pressure 140/75 Pulse Oximetry 95 97 Oxygen Delivery Method 10/17/22 09:40 10/17/22 09:45 10/17/22 09:45 Temperature Pulse Rate 63 Respiratory Rate 27 H Blood Pressure 153/81 H 148/70 H Pulse Oximetry 95 Oxygen Delivery Method 10/17/22 09:50 10/17/22 09:50 10/17/22 09:56 Temperature Pulse Rate 67 63 Respiratory Rate 27 H 30 H Blood Pressure 143/65 H Pulse Oximetry 95 97 Oxygen Delivery Method 10/17/22 09:56 10/17/22 10:00 10/17/22 10:01 Temperature Pulse Rate 74 73 Respiratory Rate 29 H 32 H Blood Pressure 162/73 H Pulse Oximetry 95 96 Oxygen Delivery Method 10/17/22 10:01 10/17/22 10:05 10/17/22 10:05 Temperature Pulse Rate 63 Respiratory Rate 21 Blood Pressure 182/80 H 144/64 H Pulse Oximetry 94 Oxygen Delivery Method 10/17/22 10:10 10/17/22 10:10 10/17/22 10:15 Temperature Pulse Rate 62 Respiratory Rate 29 H Blood Pressure 153/66 H 149/63 H Pulse Oximetry 96 Oxygen Delivery Method 10/17/22 10:15 10/17/22 10:20 10/17/22 10:20 Temperature Pulse Rate 64 64 Respiratory Rate 19 27 H Blood Pressure 158/67 H Pulse Oximetry 94 92 Oxygen Delivery Method 10/17/22 10:25 10/17/22 10:25 10/17/22 10:30 Temperature Pulse Rate 65 Respiratory Rate 23 Blood Pressure 160/69 H 156/70 H Pulse Oximetry 91 Oxygen Delivery Method 10/17/22 10:30 10/17/22 10:35 10/17/22 10:35 Temperature Pulse Rate 64 66 Respiratory Rate 18 20 Blood Pressure 148/67 H Pulse Oximetry 92 92 Oxygen Delivery Method 10/17/22 10:45 10/17/22 10:45 10/17/22 10:50 Temperature Pulse Rate 82 71 Respiratory Rate Blood Pressure 181/71 H Pulse Oximetry 87 L 95 Oxygen Delivery Method 10/17/22 10:50 10/17/22 10:55 10/17/22 10:55 Temperature Pulse Rate 68 Respiratory Rate Blood Pressure 166/71 H 148/70 H Pulse Oximetry 93 Oxygen Delivery Method 10/17/22 11:00 10/17/22 11:26 10/17/22 11:26 Temperature Pulse Rate 71 72 Respiratory Rate 57 H Blood Pressure 134/69 Pulse Oximetry 95 96 Oxygen Delivery Method 10/17/22 11:30 10/17/22 11:30 10/17/22 11:35 Temperature Pulse Rate 63 64 Respiratory Rate 25 H 29 H Blood Pressure 143/63 H Pulse Oximetry 96 97 Oxygen Delivery Method 10/17/22 11:35 10/17/22 11:40 10/17/22 11:40 Temperature Pulse Rate 65 Respiratory Rate 26 H Blood Pressure 141/63 H 144/67 H Pulse Oximetry 97 Oxygen Delivery Method 10/17/22 11:45 10/17/22 11:45 10/17/22 11:51 Temperature Pulse Rate 61 61 Respiratory Rate 23 25 H Blood Pressure 143/63 H Pulse Oximetry 96 98 Oxygen Delivery Method 10/17/22 11:51 10/17/22 11:56 10/17/22 11:56 Temperature Pulse Rate 75 Respiratory Rate 21 Blood Pressure 111/52 L 142/64 H Pulse Oximetry 97 Oxygen Delivery Method 10/17/22 12:00 10/17/22 12:00 10/17/22 12:05 Temperature Pulse Rate 63 62 Respiratory Rate 22 22 Blood Pressure 144/64 H Pulse Oximetry 96 98 Oxygen Delivery Method 10/17/22 12:05 10/17/22 12:11 10/17/22 12:11 Temperature Pulse Rate 64 Respiratory Rate 26 H Blood Pressure 143/64 H 162/73 H Pulse Oximetry 97 Oxygen Delivery Method 10/17/22 12:30 10/17/22 13:00 Temperature Pulse Rate 60 63 Respiratory Rate 22 27 H Blood Pressure Pulse Oximetry 98 95 Oxygen Delivery Method Oxygen Delivery Method Room Air Narrative Exam Narrative: General: No acute distress. HEENT: Pupils equal reactive to light extraocular movements normal. Trachea is midline. Head is normocephalic. Cardiovascular: Heart sounds S1 and S2 with no extra sounds or murmurs. Respiratory: Adequate air entry throughout the lung faust no wheezes or crackles. Gastrointestinal: Abdomen is soft. Nontender. Bowel sounds normal. Musculoskeletal: Able to move all extremities volitionally no specific localized strength deficits. No extremity edema. Neuro: Alert. Oriented x3. Normal sensation of all extremities. Skin: No lesions or rashes. Objective Labs 10/17/22 06:37 10/17/22 07:41 Labs: Laboratory Results - last 24 hr 10/17/22 10/17/22 10/17/22 06:37 07:41 09:55 WBC 7.5 RBC 4.76 Hgb 13.0 Hct 38.8 MCV 81.5 MCH 27.3 MCHC 33.5 RDW 15.0 H Plt Count 283 Neut % (Auto) 66.3 Lymph % (Auto) 24.[address] [place] % (Auto) 8.2 Eos % (Auto) 0.5 L Baso % (Auto) 0.7 Neut # (Auto) 5000 Lymph # (Auto) 1800 [place] # (Auto) 600 Eos # (Auto) 0 Baso # (Auto) 100 D-Dimer 765 H Sodium 136 L Potassium 4.1 Chloride 101 Carbon Dioxide 27 BUN 18 H Creatinine 0.65 Estimated GFR > 60 BUN/Creatinine Ratio 27.7 H Glucose 142 H Calcium 10.2 Magnesium 1.8 Total Bilirubin 0.6 AST 17 ALT 14 Alkaline Phosphatase 92 Total Creatine Kinase 39 Troponin I < 0.012 NT-Pro-B Natriuret Pep 434 H Total Protein 7.3 Albumin 4.2 Globulin 3.1 Albumin/Globulin Ratio 1.4 Lipase 30 Procalcitonin 0.05 10/17/22 09:55 WBC RBC Hgb Hct MCV MCH MCHC RDW Plt Count Neut % (Auto) Lymph % (Auto) [place] % (Auto) Eos % (Auto) Baso % (Auto) Neut # (Auto) Lymph # (Auto) [place] # (Auto) Eos # (Auto) Baso # (Auto) D-Dimer Sodium Potassium Chloride Carbon Dioxide BUN Creatinine Estimated GFR BUN/Creatinine Ratio Glucose Calcium Magnesium Total Bilirubin AST ALT Alkaline Phosphatase Total Creatine Kinase Troponin I < 0.012 NT-Pro-B Natriuret Pep Total Protein Albumin Globulin Albumin/Globulin Ratio Lipase Procalcitonin Assessment & Plan Assessment & Plan narrative: 1. Shortness of breath. Patient indicates that she has asthma but is not on any inhalers. She does not describe shortness of breath as asthma like. Did have some elevated BNP. We will diurese the patient further with IV furosemide. Follow BNP and clinically. CT angio of the chest shows no acute findings. 2. Chest pain. Initial pain described as intermittent and sharp. Not consistent with cardiac. Does have a dull chest pain as well that is concerning for cardiac. Serial troponins being measured and patient is on cardiac monitoring. Nitroglycerin available as needed. 3. Diabetes. Continue with patient's regular medications. 4. Hypertension. Continue patient's regular medication. Increase the HCTZ to provide better diuresis. Supplement with KCl due to the increased dose of HCTZ. 5. Osteoarthritis with some muscle cramping. The patient's regular medication for pain and muscle cramping. 6. History of HLD per chart. Continue statin medication. Assess lipid panel in the morning. 7. Hypothyroidism on replacement. Continue regular replacement. With levothyroxine 100 mcg daily. Measure TSH in the morning as well as free T3 and free T4. I have utilized all available immediate resources to obtain, update, or review the patient's current medications. Additional history is obtained via discussion with the ER provider and I have reviewed current labs and imaging findings. Patient to be admitted as Observation with expectation to be in hospital less than 2 midnights. Code status: Full code Surrogate decision maker: Daughter Genia Dawson DVT prophylaxis : Enoxaparin 40 mg subQ daily PPI protection: Pantoprazole 40 mg daily, start today COVID-19 COVID-19 status: Not tested Time Spent With Patient Time with patient: 70 minutes or more, with 50% spent counseling/coordinating Quality MIPS - Admit I confirm the patient?s Advance Care Plan is present, Code status is documented, Surrogate decision maker is in patient?s record [If Yes, STOP here]: Yes MIPS - Meds 'Current medications' to include all prescriptions, [id number] products, herbals, cannabis/cannabidiol products, and vitamin/mineral/dietary (nutritional) supplements. I have utilized all available resources to obtain, update, or review the patient?s current medications. [If Yes, STOP here]: Yes
[2022-10-17 14:46] LABS: Troponin I < 0.012 ng/mL (0.01-0.034)
[2022-10-17] MEDS: OXYCODONE IR 10 MG TABLET 20 MG PO ×2 (15:03→20:44)
[2022-10-17] MEDS: FUROSEMIDE 20 MG/2 ML VIAL IV (15:03)
[2022-10-17] MEDS: cloNIDine 0.1 MG TABLET PO (15:04)
[2022-10-17] MEDS: ENOXAPARIN 40 MG/0.4 ML SYRINGE SUBCUT (15:16)
--- NOTE | 2022-10-17 17:12 | PC.NURSE ---
Pt arrived from ED; alert/oriented. Had mild episode of left sided chest discomfort EKG done. Asymptomatic, MD aware. Denies discomfort at this time. HL RFA intact/patent. Call light w/in reach, Bed alarm on for pt safety. Continue w/plan fo care.
[2022-10-17] MEDS: LORazepam 0.5 MG TABLET PO ×2 (17:46→22:18)
[2022-10-17] MEDS: diphenhydrAMINE 25 MG TABLET 50 MG PO (19:23)
[2022-10-17 20:39] LABS: Troponin I < 0.012 ng/mL (0.01-0.034)
[2022-10-17] MEDS: TRAZODONE 50 MG TABLET 200 MG PO (20:43)
[2022-10-17] MEDS: GLIMEPIRIDE 2 MG TABLET 4 MG PO (20:44)
[2022-10-17] MEDS: PRAVASTATIN 20 MG TABLET PO (20:45)
[2022-10-17] MEDS: TIZANIDINE 4 MG TABLET PO (20:45)
[2022-10-18] VITALS (9 sets, daily range): BP systolic 90–145; BP diastolic 32–61; PULSE 47–76; RESP 16–19; TEMP 36.2–36.7; O2SAT 93–98
[2022-10-18] MEDS: SODIUM CHLORIDE 0.9% 250 ML 1000 ML IV (00:02)
[2022-10-18] MEDS: TIZANIDINE 4 MG TABLET PO ×4 (01:56→21:01)
--- NOTE | 2022-10-18 02:02 | PC.NURSE ---
Pt blood pressure dropped downt to 90/35 with qa map of 55. pt was symptomatic, talking and joking with staff. Dr. Biggs notified,orders taken for a 250 ml bolus NS. BP improved after bolus to 122/47 with a map of 81.
[2022-10-18] MEDS: LEVOTHYROXINE 100 MCG TABLET PO (05:17)
--- NOTE | 2022-10-18 08:01 | PM.PN.1 ---
Subjective Subjective Interval history: Patient says she is feels weak due to having low diastolic blood pressure. Explained to her that the low diastolic blood pressure does not make someone feel weak however the patient said for her it did. Had a reaction last evening with itchy that has subsided but the patient said it was not relationship to taking Benadryl that it subsided. Patient has ongoing general baseline pain that she had prior to admission. No other new complaints. Exam Vital Signs (past 8 hours): - 10/18/22 01:52 10/18/22 04:00 Temperature 98.0 F Pulse Rate 72 Respiratory Rate 16 Blood Pressure 122/47 L 145/61 H Pulse Oximetry 97 96 Oxygen Flow Rate 0 Oxygen Delivery Method Room Air Oxygen Flow Rate 0 Narrative Exam Narrative: HEENT:? Pupils equal reactive to light extraocular movements normal.? Trachea is midline.? Head is normocephalic. Cardiovascular:? Heart sounds S1 and S2 with no extra sounds or murmurs. Respiratory:? Adequate air entry throughout the lung faust no wheezes or crackles. Gastrointestinal:? Abdomen is soft.? Nontender.? Bowel sounds normal. Musculoskeletal:? Able to move all extremities volitionally no specific localized strength deficits.? No extremity edema. Neuro:? Alert.? Oriented x3.? Normal sensation of all extremities. Skin:? No lesions or rashes. Objective Labs 10/18/22 08:45 10/18/22 08:37 Labs: Laboratory Results - last 24 hr 10/17/22 10/17/22 10/17/22 07:41 09:55 09:55 D-Dimer 765 H Sodium 136 L Potassium 4.1 Chloride 101 Carbon Dioxide 27 BUN 18 H Creatinine 0.65 Estimated GFR > 60 BUN/Creatinine Ratio 27.7 H Glucose 142 H Calcium 10.2 Magnesium 1.8 Total Bilirubin 0.6 AST 17 ALT 14 Alkaline Phosphatase 92 Total Creatine Kinase 39 Troponin I < 0.012 < 0.012 NT-Pro-B Natriuret Pep 434 H Total Protein 7.3 Albumin 4.2 Globulin 3.1 Albumin/Globulin Ratio 1.4 Lipase 30 Procalcitonin 0.05 10/17/22 10/17/22 14:10 20:05 D-Dimer Sodium Potassium Chloride Carbon Dioxide BUN Creatinine Estimated GFR BUN/Creatinine Ratio Glucose Calcium Magnesium Total Bilirubin AST ALT Alkaline Phosphatase Total Creatine Kinase Troponin I < 0.012 < 0.012 NT-Pro-B Natriuret Pep Total Protein Albumin Globulin Albumin/Globulin Ratio Lipase Procalcitonin PFSH Medical History Asthma Diabetes Hyperlipidemia Hypertension Osteoarthritis Social History household members: children Smoking Status: Never smoker alcohol intake: current Assessment & Plan Assessment & Plan narrative: 1. Shortness of breath on presentation.? Patient indicates that she has asthma but is not on any inhalers.? She does not describe shortness of breath as asthma like.? Did have some elevated BNP.? We will diurese the patient further with IV furosemide.? Follow BNP and clinically.? CT angio of the chest shows no acute findings.? Today shortness of breath is not main complaint. 2. Chest pain.? Initial pain described as intermittent and sharp.? Not consistent with cardiac.? Does have a dull chest pain as well that is concerning for cardiac.? Serial troponins being measured and patient is on cardiac monitoring.? Nitroglycerin available as needed. Chest pain not a complaint today. 3. Diabetes.? Continue with patient's regular medications.? 4. Hypertension.? Continue patient's regular medication.? Increase the HCTZ to provide better diuresis.? Supplement with KCl due to the increased dose of HCTZ. HCTZ was held last night however blood pressure has returned to patient's normal hypertensive level. This will be held today. 5. Osteoarthritis with some muscle cramping.? The patient's regular medication for pain and muscle cramping. 6. History of HLD per chart.? Continue statin medication.? Assess lipid panel in the today. These blood tests are still pending. 7. Hypothyroidism on replacement.? Continue regular replacement.? With levothyroxine 100 mcg daily.? Measure TSH in the today as well as free T3 and free T4. These blood tests are pending. 8. Complaint of general weakness. Patient needs to mobilize. Code status: Full code Surrogate decision maker: Daughter Genia Dawson DVT prophylaxis :? Enoxaparin 40 mg subQ daily PPI protection:? Pantoprazole 40 mg daily Quality VTE Deep Vein Thrombosis/Pulmonary Embolism Present on Admission: No
[2022-10-18 09:05] LABS: Add Manual Diff / Slide Review NO; Basophils Absolute Auto 100 /uL (0-100); Basophils Percent Auto 0.8 % (0-2); Eosinophils Absolute Auto 100 /uL (0-450); Hematocrit 35.4 % (36-46); Hemoglobin 11.9 g/dL (12.0-16.0); Lymphocytes Absolute Auto 2100 /uL (1100-4500); Lymphocytes Percent Auto 29.7 % (25-40); Mean Corpuscular HGB Conc 33.7 % (30-36); Mean Corpuscular Hemoglobin 27.5 PG (26-34); Mean Corpuscular Volume 81.5 fL (80-100); Monocytes Absolute Auto 700 /uL (0-900); Monocytes Percent Auto 9.5 % (3-14); Neutrophils Absolute Auto 4200 /uL (1500-7000); Platelet Count 259 X10^3/uL (150-400); Red Blood Cell Count 4.34 X10^6/uL (4.0-5.2); White Blood Cell Count 7.2 X10^3/uL (4.5-11.0)
[2022-10-18] MEDS: GLIMEPIRIDE 2 MG TABLET 4 MG PO ×2 (09:13→21:01)
[2022-10-18] MEDS: OXYCODONE IR 10 MG TABLET 20 MG PO ×3 (09:13→21:02)
[2022-10-18] MEDS: POTASSIUM CHLORIDE 20 MEQ TAB PO (09:13)
[2022-10-18 09:21] LABS: BUN Creatinine Ratio 32.9 (6-22); Blood Urea Nitrogen 27 mg/dL (7-17); Calcium 9.6 mg/dL (8.4-10.2); Carbon Dioxide 29 mmol/L (22-32); Chloride 97 mmol/L (98-107); Cholesterol 204 mg/dL (140-199); Estimated Glomerular Filt Rate > 60 mL/min (>60); Glucose 109 mg/dL (80-110); HDL Cholesterol 42 mg/dL (40-60); HEMOLYSIS 21 (0-50); LDL Cholesterol Calculated 123 mg/dL (<100); Potassium 3.7 mmol/L (3.4-5.1); Sodium 131 mmol/L (137-145); Triglycerides 196 mg/dL (35-150)
[2022-10-18 09:30] LABS: NT-proBNP (BNP-Adult 18+) 290 pg/mL (<125)
[2022-10-18 10:13] LABS: Free T3, Triiodothyronine Free 3.29 pg/mL (2.77-5.27); Free T4, Direct Thyroxine 1.68 ng/dL (0.78-2.19)
--- NOTE | 2022-10-18 12:06 | CM.DANOTE ---
Addendum entered by Shani Pritchard R.N. 10/18/22 15:02: Met with patient again, she is sitting up in her chair. Asked her if she would be interested in any type of home health services, stated, she would not at this time. Stated that she is currently in her daughter's motor home, her daughter is lazy, not working, is up late, and sleeps in during the day. She stated, she is planning on moving into her own place in [facility] in the near future. Let her know that if she changes her mind, to let care management know. Original Note: DCP: Case received, EMR reviewed and met with patient. Introduced self and role. Was able to obtain information regarding patient's baseline mobility status as well as her current living situation. DCP assessment completed with information currently available. Patient is a 72 year old female who admitted yesterday afternoon to the care of the hospitalist team. PCP: Dr. Humphreys [facility] Patient came to the hospital via private vehicle secondary to having shortness of breath. Notes indicate that patient had gone to an outside facility, and was diagnosed with the beginning of CHF. Patient was admitted for chest pain, elevated BNP,. Met with patient in her room. Patient is alert and oriented, confirmed that she resides here in [place] in a motor home park with daughter, Genia Dawson. She indicated that she does have canes and walkers, walks short distances in her RV. She does have a local provider that she sees, and patient does drive. Patient does not have P.t. orders, but has had limited mobility here in the hospital, hospitalist is encouraging nursing staff to get patient up and mobilize. Patient does have history of femur fracture back in January, so she does have chronic pain issues. Was asking for pain meds when this DC Home Planning Consultant Salesperson was in the room. P: DCP to continue to follow closely. Plan is most likely home when stable, will see how patient mobilizes in her room. Shani Pritchard RN/Chief Telephone Operator Discharge Planning/Care Management CM Discharge Assessment Start: 10/18/22 12:04 Freq: Status: Active Protocol: Document 10/18/22 12:04 (Rec: 10/18/22 12:05 [id number]) Discharge Planning Assessment Assigned [employer] Worker Shani Pritchard RN/Chief Telephone Operator Advance Directives? No History Provided By Patient,Medical Record Prior Living Arrangements House Comment Lives in Motor home with daughter Household Members children Type of transporation used prior to Drives own vehicle admit Independent with ADL's Yes Is patient alert and oriented? Yes Needs Assistance With Meal Prep,Home Chores / Shopping Caregiver for Another No DME Already Rented / Owned FWW / Walker,Cane Comment Pain, anxiety, lack of mobility from past fracture Discharge Plan Home Transportation Arrangement Daughter Referrals Initiated Other Additional Comment Will have to see how patient mobilizes in her room. Whiteboard Updated in Patient Room with Yes name and ext. # of Hide Mill Worker Review Status In Process Next Review Type Continued Stay Review
--- NOTE | 2022-10-18 13:18 | PC.NURSE ---
Addendum entered by Cathi Rosas R.N. 10/18/22 14:45: pain 8\10 with heavyness in chest and left leg and back pain medicated md aware Original Note: pt alert and oriented x4 encourage pt to get up to bsc and remove purewick and she refuses and said shes in to much pain to get up-pt medicated and up to chair for lunch, denies chest pain
[2022-10-18] MEDS: LORazepam 0.5 MG TABLET PO (15:31)
[2022-10-18] MEDS: methylPREDNISolone 125 MG/2 ML VIAL 60 MG IV (16:13)
[2022-10-18] MEDS: LORazepam 1 MG TABLET 0.5 MG PO (21:00)
[2022-10-18] MEDS: PRAVASTATIN 20 MG TABLET PO (21:02)
--- NOTE | 2022-10-18 23:47 | PC.NURSE ---
This RN was notified at 2300 that patient had requested her purse to take personal medication. Upon entering the room, the patient informed this RN that she had taken a 500 mg dose of keflex for UTI. Pt continued on to say that the medication had not been prescribed by the external doctor for the UTI because her doctor was aware that it was a leftover Rx and informed patient that it would suffice as treatment. Pt informed this RN that admitting hospitalist Bulmaro was aware of this and had informed the patient she could continue to take that dose of personal medication. 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 This RN reviewed patient's chart and found no mention of the situation in a provider's note or any nursing note. This RN discussed with hospitalist Dian to determine best course of action- as patient had already taken medication dose for the evening, it would be discussed in the morning. Medication remains unverified by pharmacy. Patient refuses to give the medication to this RN for storage- patient is worried about missing a dose of this antibiotic. Patient made a verbal contract with this RN stating she would not take the medication again until the AM provider has been informed.
[2022-10-19] MEDS: TIZANIDINE 4 MG TABLET PO ×3 (01:06→13:22)
[2022-10-19] MEDS: PANTOPRAZOLE DR 40 MG TABLET PO ×2 (02:37→06:24)
[2022-10-19 03:06] VITALS: BP 136/59; PULSE 78; RESP 18; TEMP 36.4; O2SAT 93
[2022-10-19] MEDS: LEVOTHYROXINE 100 MCG TABLET PO (06:25)
[2022-10-19 08:00] VITALS: BP 176/67; PULSE 71; RESP 17; TEMP 36.3; O2SAT 98
[2022-10-19 08:06] LABS: Add Manual Diff / Slide Review NO; Basophils Absolute Auto 0 /uL (0-100); Basophils Percent Auto 0.3 % (0-2); Eosinophils Absolute Auto 0 /uL (0-450); Hematocrit 36.1 % (36-46); Hemoglobin 12.2 g/dL (12.0-16.0); Lymphocytes Absolute Auto 800 /uL (1100-4500); Lymphocytes Percent Auto 5.8 % (25-40); Mean Corpuscular HGB Conc 33.7 % (30-36); Mean Corpuscular Hemoglobin 27.2 PG (26-34); Mean Corpuscular Volume 80.7 fL (80-100); Monocytes Absolute Auto 400 /uL (0-900); Neutrophils Absolute Auto 11900 /uL (1500-7000); Neutrophils Percent Auto 90.9 % (50-75); Platelet Count 265 X10^3/uL (150-400); Red Blood Cell Count 4.47 X10^6/uL (4.0-5.2); Red Cell Distribution Width 14.7 % (11.6-14.8); White Blood Cell Count 13.1 X10^3/uL (4.5-11.0)
[2022-10-19 08:17] LABS: BUN Creatinine Ratio 40.3 (6-22); Blood Urea Nitrogen 27 mg/dL (7-17); Carbon Dioxide 27 mmol/L (22-32); Chloride 101 mmol/L (98-107); Estimated Glomerular Filt Rate > 60 mL/min (>60); Glucose 223 mg/dL (80-110); HEMOLYSIS < 15 (0-50); Potassium 4.7 mmol/L (3.4-5.1); Sodium 133 mmol/L (137-145)
[2022-10-19] MEDS: diphenhydrAMINE 25 MG TABLET 50 MG PO (09:36)
[2022-10-19] MEDS: GLIMEPIRIDE 2 MG TABLET 4 MG PO (09:36)
[2022-10-19] MEDS: lisinopriL 20 MG TABLET 40 MG PO (09:36)
[2022-10-19] MEDS: OXYCODONE IR 10 MG TABLET 20 MG PO (09:36)
[2022-10-19] MEDS: hydroCHLOROthiazide 25 MG TABLET 50 MG PO (09:37)
[2022-10-19] MEDS: LORazepam 1 MG TABLET 0.5 MG PO (09:37)
[2022-10-19] MEDS: POTASSIUM CHLORIDE 20 MEQ TAB PO (09:37)
[2022-10-19] MEDS: cloNIDine 0.1 MG TABLET PO (09:41)
[2022-10-19] MEDS: FLUCONAZOLE 100 MG TABLET 150 MG PO (10:36)
--- NOTE | 2022-10-19 11:51 | P.DS_ITS ---
History of Present Illness History of Present Illness Chief complaint: Dyspnea, CHF Narrative: Patient having vaginal yeast symptoms on the day of discharge. Order given for Diflucan 150 mg 1 tablet and some vaginal yeast cream as well. Patient still has a sensation of some discomfort in the bronchial area of the chest examination has no bronchospasm or wheezing or crackles in the chest. As best as could be determined likely getting silent GERD that is having a secondary respiratory reaction. She was reassured that otherwise workup is negative and the patient will be discharged on pantoprazole 40 mg b.i.d. as treatment and she could continue to eat small meals, low-fat diet, not lay down after meals and not eat after 6:00 p.m. as well as avoid alcohol, chocolate, caffeine and mints. Discharge Providers Provider Date of admission: 10/17/22 12:24 Discharge Date: 10/19/22 Primary care physician: Aftab Leonard PA-C Discharge provider: Nicol Rodriguez MD Summary Hospital Course Discharge Diagnosis: Shortness of breath on presentation History of asthma Elevated BNP Confirmation of no acute finding with CT angio of the chest Confirmation that serial troponins are normal Type 2 diabetes on medication Hypertension Osteoarthritis Pain of muscles and muscle cramping Hyperlipidemia Hypothyroidism on replacement Generalized weakness Vaginal yeast infection Recent initiation of Keflex treatment for UTI Hospital Course: Michelle Cerda is a 72-year-old female who is presented for evaluation shortness of breath.? She stated that a couple days ago she started to have shortness of breath.? She went to an outside facility where she was diagnosed with ?the beginnings of CHF ? and that she was started on Lasix.? She does not know the dose but she knows that she takes it twice a day.? She stated that on the morning of presentation, she woke up with shortness of breath.? She was also coughing.? She was feeling like she can not get a deep breath.? She also had some sharp left-sided chest discomfort.? She has been taking all her medications as directed.? No lower extremity swelling. She was not having any fever chills nausea vomiting or diaphoresis. No abdominal pain constipation or diarrhea no dysuria or hematuria. Able to move all extremities volitionally. No numbness or tingling in any extremity. BNP was elevated to 434 and patient given furosemide IV to decrease the BNP to 290. No acute findings with chest CTA Chest x-ray shows possible basal atelectasis or aspiration which would be consistent with a patient having GERD and silent aspiration plus other respiratory symptoms due to GERD. During the hospital stay patient was given 1 dose of Solu-Medrol 60 med mg possible bronchial inflammation however this did not change her symptoms at all. Patient's HCTZ was increased to 50 mg daily to improve overall diuresis and for blood pressure management. Patient having vaginal yeast symptoms on the day of discharge. Order given for Diflucan 150 mg 1 tablet and some vaginal yeast cream as well. Patient still has a sensation of some discomfort in the bronchial area of the chest examination has no bronchospasm or wheezing or crackles in the chest. As best as could be determined likely getting silent GERD that is having a secondary respiratory reaction. She was reassured that otherwise workup is negative and the patient will be discharged on pantoprazole 40 mg b.i.d. as treatment after initiating on the day prior to discharge with initial dose of 80 mg of pantoprazole IV and she should continue to eat small meals, low-fat diet, not lay down after meals and not eat after 6:00 p.m. as well as avoid alcohol, chocolate, caffeine and mints. White blood count was marginally elevated on the day of discharge and this is consistent with a Solu-Medrol dose given the day before. Status at Discharge Cognitive/behavioral status at discharge: at baseline, oriented Functional status at discharge: independent ambulation Overall status at discharge: patient is progressing back to baseline Time Spent with Patient Time spent: Greater than 30 minutes Exam Vital Signs (past 8 hours): - 10/19/22 08:00 Temperature 97.3 F L Pulse Rate 71 Respiratory Rate 17 Blood Pressure 176/67 H Pulse Oximetry 98 Oxygen Flow Rate 0 Oxygen Delivery Method Room Air Oxygen Flow Rate 0 Narrative Exam Narrative: HEENT:? Pupils equal reactive to light extraocular movements normal.? Trachea is midline.? Head is normocephalic. Cardiovascular:? Heart sounds S1 and S2 with no extra sounds or murmurs. Respiratory:? Adequate air entry throughout the lung faust no wheezes or crackles. Gastrointestinal:? Abdomen is soft.? Nontender.? Bowel sounds normal. Musculoskeletal:? Able to move all extremities volitionally no specific localized strength deficits.? No extremity edema. Neuro:? Alert.? Oriented x3.? Normal sensation of all extremities. Skin:? No lesions or rashes. Objective Labs 10/19/22 07:53 10/19/22 07:53 Labs: Laboratory Results - last 24 hr 10/19/22 10/19/22 07:53 07:53 WBC 13.1 H D RBC 4.47 Hgb 12.2 Hct 36.1 MCV 80.7 MCH 27.2 MCHC 33.7 RDW 14.7 Plt Count 265 Neut % (Auto) 90.9 H D Lymph % (Auto) 5.8 L D [place] % (Auto) 3.0 Eos % (Auto) 0.0 L Baso % (Auto) 0.3 Neut # (Auto) 28067 H Lymph # (Auto) 800 L [place] # (Auto) 400 Eos # (Auto) 0 Baso # (Auto) 0 Sodium 133 L Potassium 4.7 Chloride 101 Carbon Dioxide 27 BUN 27 H Creatinine 0.67 Estimated GFR > 60 BUN/Creatinine Ratio 40.3 H Glucose 223 H D Calcium 10.0 PFSH Medical History Asthma Diabetes Hyperlipidemia Hypertension Osteoarthritis Social History household members: children Smoking Status: Never smoker alcohol intake: current Discharge Plan Discharge Plan Patient Disposition: Home Discharge orders & Medications Prescriptions: New potassium chloride [Klor-Con M20] 20 mEq Tablet,Er Particles/Crystals 20 meq PO DAILYCC Qty: 30 0RF pantoprazole 40 mg Tablet,Delayed Release (Dr/Ec) 40 mg PO 0700,2100 Qty: 60 0RF pravastatin 20 mg Tablet 20 mg PO BEDTIME Qty: 30 0RF hydrochlorothiazide 25 mg Tablet 50 mg PO DAILY Qty: 30 0RF Continued clonidine HCl 0.1 mg tablet 0.1 mg PO DAILY PRN (Reason: blood pressure) tizanidine 4 mg tablet 4 mg PO Q6H levothyroxine 100 mcg tablet 100 mcg PO QAM trazodone 100 mg tablet 200 mg PO QPM glimepiride 4 mg tablet 4 mg PO BID pioglitazone 30 mg tablet 30 mg PO DAILY lisinopril 40 mg tablet 40 mg PO DAILY oxycodone 20 mg tablet 20 mg PO 3XD Discontinued hydrochlorothiazide 25 mg tablet 25 mg PO QAM Follow up/Referrals: Aftab Leonard, VANESSA [Primary Care Provider] - Visit Report/Discharge Packet Stand Alone Forms: Patient Portal/API, Stroke Signs & Symptoms Discharge Data Primary Care Provider: Aftab Leonard Attending Provider: Nicol Rodriguez Admlianne Date/Time: 10/17/22 12:24 Quality VTE Deep Vein Thrombosis/Pulmonary Embolism Present on Admission: No
[2022-10-19] MEDS: CLOTRIMAZOLE 1% VAG CRM 45 GM 1 APPLIC TOP (11:56)
--- NOTE | 2022-10-19 13:45 | CM.DPC ---
DCP Discharge Home Per MD, pt is medically stable to discharge home today and per RN pt has contacted her Daughter and awaiting Dtr to arrive for transport home but wanting resources for housing options. SW met bedside with pt and explained role and pt very appreciative and provided her with the Senior Resource Guidebook and earmarked page for [facility] Aging and Disabilities and Community action as pt feels she is likely over the income limit with her social security of $2100 a month for Medicaid but states her Dtr is not a very positive person, has 12 cats, they live in the that has to be moved regularly and Dtr's partner has some anger issues and hx of senior care. Pt very appreciative of the resources offered and remains agreeable with d/c today and Dtr just arrived and nursing staff to take pt down to Dtr POV. Plan: Patient to d/c home today via Dtr POV and has housing resources for better manager terminal housing planning. IGNACIA Martinez
== END 2022-10-19 13:55 | disposition home or self-care (01) ==
LOC: ED 10:26 → AC 12:24
PROVIDERS: Emergency Medicine; Admitting Provider Neuromusculoskeletal Medicine, Sports Medicine; Emergency Provider Emergency Medicine; PCP Physician Assistant Medical; Visit Provider Neuromusculoskeletal Medicine, Sports Medicine
DX: R07.9 Chest pain, unspecified (principal); I10 Essential (primary) hypertension; E03.9 Hypothyroidism, unspecified; E11.9 Type 2 diabetes mellitus without complications; E78.5 Hyperlipidemia, unspecified
CPT/HCPCS: 36415; 71045; 71275; 80048; 80053; 80061; 81003; 82550; 83690; 83735; 83880; 84145; 84439; 84443; 84481; 84484; 85025; 85379; 93005; 99284; G0378; J1650; J1940; J2930; Q9967